=== PATIENT | female | born 1945 | race African-American/Black ===

== ENCOUNTER → 2016-10-13 | Outpatient (CLI) | payer MEDICARE, MEDICAID ==
[2013-11-26 10:35] VITALS: BP 128/78
[~2016-10-13] MED LIST: ALLO100T PO; AMLO2.5T PO; CELE100C PO; CRESTOR5 MG PO; FLUT100D IH; HYDR-2766 PO; PROAIR HFA8.5 GM IH; TRAM50TA PO; VALS40TA2 PO
--- NOTE | 2016-10-13 14:58 | RAD ---
DATE: 10/13/2016 EXAM: DIGITAL SCREEN BILAT W/CAD HISTORY: Screening study. COMPARISON: 09/16/2015 This study was interpreted with the benefit of Computerized Aided Detection (CAD). The breast parenchyma shows scattered fibroglandular densities. Breast parenchyma level B. FINDINGS: Digital MLO and CC mammograms of both breasts were obtained. Comparison study is dated 06/29/2015. The breast parenchyma is composed of scattered fibroglandular densities which can obscure a lesion on mammography (breast density code B). Benign-appearing calcifications are seen within both breasts. No spiculated mass is seen. No malignant appearing calcification or area of architectural distortion is noted. Since the previous examination there has been no significant interval change. IMPRESSION: BI-RADS category 1, negative. There is no mammographic of evidence malignancy. Routine yearly screening mammography is recommended for follow-up. BI-RADS CATEGORY: 1 NEGATIVE RECOMMENDED FOLLOW-UP: 12M 12 MONTH FOLLOW-UP PQRS compliance statement: Patient information was entered into a reminder system with a target due date 10/10/2017 for the next mammogram. Mammography is a sensitive method for finding small breast cancers, but it does not detect them all and is not a substitute for careful clinical examination. A negative mammogram does not negate a clinically suspicious finding and should not result in delay in biopsying a clinically suspicious abnormality. "Our facility is accredited by the [employer] Mammography Program."
== END | disposition home or self-care (01) ==
LOC: MAMMO 13:32
PROVIDERS: ATTEND Family Medicine
DX: Z12.31 Encounter for screening mammogram for malignant neoplasm of breast (principal)
CPT/HCPCS: G0202; 77067

== ENCOUNTER 2017-01-26 09:00 | Emergency (ER) | payer MEDICARE, MEDICAID ==
[~2017-01-26] VITALS: Ht 160 cm; Wt 65.3 kg
[2017-01-26 09:08] VITALS: BP 111/66
[2017-01-26] MEDS ORDERED: MUPIROCIN 2 % TOPICAL CREAM 15GM TUBE. TP STA (09:19)
[2017-01-26] MEDS ORDERED: CEPH-264 PO (09:27)
[2017-01-26] MEDS ORDERED: TRAM50TA PO (09:27)
[2017-01-26] MEDS ORDERED: MUPI22OI2 TP (09:27)
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
== END 2017-01-26 09:38 | disposition home or self-care (01) ==
LOC: ER 09:00
DX: T24.201A Burn of second degree of unspecified site of right lower limb, except ankle and foot, initial encounter (principal); T31.0 Burns involving less than 10% of body surface; X12.XXXA Contact with other hot fluids, initial encounter; Y93.89 Activity, other specified; Y99.8 Other external cause status; Y92.89 Other specified places as the place of occurrence of the external cause
CPT/HCPCS: 16020; 99284-25

== ENCOUNTER → 2017-10-15 | Outpatient (CLI) | payer MEDICARE, MEDICAID ==
[~2017-10-15] MED LIST changes: +CEPH-264 PO; +MUPI22OI2 TP
--- NOTE | 2017-10-16 09:16 | RAD ---
History: Routine screening. Technique: Bilateral digital mammographic routine views were obtained with CAD - computer aided detection. Comparison: 10/13/2016 09/16/2015 08/22/2014 08/22/2013 08/08/2012 Findings: Breast Tissue Density B :The breast tissue is composed of mixed fatty and fibroglandular tissue. There are no suspicious masses, microcalcifications or areas of architectural distortion. Benign type calcifications are seen bilaterally. Impression: Negative mammogram. BI-RADS Category 2: Benign. Recommendation: In the absence of new clinical symptoms or change in physical exam, annual screening mammography is recommended. A mammogram does not have 100% sensitivity and therefore a negative imaging study should not delay further work up of a suspicious abnormality. The patient will receive a letter with the results in the mail. Patient information is entered into the reminder system with a target due date for the next screening mammogram. The patient will receive a reminder. "Our facility is accredited by the [employer] Mammography Program."
== END | disposition home or self-care (01) ==
LOC: MAMMO 10:16
PROVIDERS: ATTEND Family Medicine
DX: Z12.31 Encounter for screening mammogram for malignant neoplasm of breast (principal); I10 Essential (primary) hypertension; E78.5 Hyperlipidemia, unspecified
CPT/HCPCS: 77067

== ENCOUNTER → 2017-12-28 | Outpatient (CLI) | payer MEDICARE, MEDICAID ==
[~2017-12-28] MED LIST changes: -AMLO2.5T PO; +AMLO2.5T3 PO
[2017-12-28 15:17] LABS: ALBUMIN 4.4 g/dL (3.4-5.0); ALBUMIN/GLOBULIN RATIO 1.1 (1.0-1.7); CALCIUM 10.5 mg/dL (8.5-10.1); GFR 66.3; POTASSIUM 3.8 mmol/L (3.5-5.1); TOTAL BILIRUBIN 0.6 mg/dL (0.2-1.0); TOTAL PROTEIN 8.5 g/dL (6.4-8.2)
[2017-12-28 15:20] LABS: CHOLESTEROL/HDL RATIO 2.3
[2017-12-29 00:11] LABS: HEMOGLOBIN A1C 5.6 % (4.8-5.6)
== END | disposition home or self-care (01) ==
LOC: LAB 14:18
PROVIDERS: ATTEND Internal Medicine Cardiovascular Disease
DX: E11.9 Type 2 diabetes mellitus without complications (principal); E78.2 Mixed hyperlipidemia; I10 Essential (primary) hypertension
CPT/HCPCS: 36415; 80053; 80061; 83036; 84550

== ENCOUNTER 2018-02-25 15:12 | Emergency (ER) | payer MEDICARE, MEDICAID ==
[~2018-02-25] VITALS: Ht 160 cm; Wt 62.6 kg
[~2018-02-25 15:12] MED LIST changes: +ALBU2.5V8 IH; -AMLO2.5T3 PO; +AMLO2.5T5 PO; -HYDR-2766 PO; +HYDR-2769 PO; -PROAIR HFA8.5 GM IH
[2018-02-25 15:22] VITALS: BP 124/80
--- NOTE | 2018-02-25 15:30 | PHYS DOC ---
Past Medical History Past Medical History: CVA, GERD, Hypertension, Other Additional Past Medical Histor: CHRONIC PAIN,OA,GOUT,ANEURSYM Past Surgical History: Other Additional Past Surgical Histo: R LEG,R SHOULDER,EYE Alcohol Use: Occasionally Drug Use: None Adult General Chief Complaint Chief Complaint: FOOT INJURY PAIN HPI HPI Patient is a 72 year old female with history of hypertension, CVA, high cholesterol, gout, who presents today complaining of a constant sharp 10 out of 10 left lateral foot pain that began 5 days ago after she fell. Patient denies any loss of consciousness. She states her pain is worse on weight bearing. She states the Fernando bandages have been helping manage the pain. Review of Systems Review of Systems Constitutional: Denies fever or chills [] Musculoskeletal: Reports left lateral foot pain Integument: Denies rash or skin lesions [] Neurologic: Denies headache, focal weakness or sensory changes [] All other systems were reviewed and found to be within normal limits, except as documented in this note. Current Medications Current Medications Current Medications Medications (Trade) Dose Ordered Sig/Cherelle Start Time Stop Time Status Last Admin Dose Admin Acetaminophen/ Hydrocodone Bitart (Lortab 5/325) 1 tab 1X ONCE 02/25/18 16:00 02/25/18 16:01 UNV Naproxen (Naprosyn) 250 mg 1X STAT 02/25/18 15:53 02/25/18 15:54 UNV Prednisone (Prednisone) 60 mg 1X ONCE 02/25/18 16:00 02/25/18 16:01 UNV Allergies Allergies Allergies Coded Allergies Type Severity Reaction Last Updated Verified No Known Drug Allergies 11/26/13 No Physical Exam Physical Exam Constitutional: Well developed, well nourished, no acute distress, non-toxic appearance. [] Skin: Warm, dry, no erythema, no rash. [] Back: No tenderness, no CVA tenderness. [] Extremities: Left foot with no obvious deformity. Tenderness on palpation of the base of the fifth metatarsal of the left foot, no navicular bone tenderness. Full range of motion to the left foot and toes. +2 left pedal pulse. Cap refill less than 2 seconds. Sensation intact to the left foot. Neurologic: Alert and oriented X 3, normal motor function, normal sensory function, no focal deficits noted. [] Psychologic: Affect normal, judgement normal, mood normal. [] Current Patient Data Vital Signs Vital Signs Date Time Temp Pulse Resp B/P (MAP) Pulse Ox O2 Delivery O2 Flow Rate FiO2 02/25/18 15:22 98.7 86 18 124/80 (95) 98 Room Air 98.7 EKG EKG [] Radiology/Procedures Radiology/Procedures []PROCEDURE: FOOT LEFT 3V Examination: FOOT LEFT 3V History: pain on planter side and lateral side of mid foot. Comparison/Correlation: None Findings: Total 3 images of the left foot were obtained. Joint spaces are unremarkable. Small calcaneal spur present. No fracture or bony destruction. Soft tissues are grossly unremarkable. Accessory ossicle lateral to the cuboid bone noted. No significant degenerative change. Impression: No acute process. Electronically signed by: Abran Kim MD (02/25/2018 3:39 PM) [facility] DICTATED and SIGNED BY: ROC HAQUE MD DATE: 02/25/18 1538 Course & Med Decision Making Course & Med Decision Making Pertinent Labs and Imaging studies reviewed. (See chart for details) This is a 72-year-old female patient presenting to the ED today with left foot pain, she fell down 5 days ago. Left foot x-rays interpreted by radiologist are negative for any acute findings. Patient already has an Fernando bandage on her left foot. Orthopedic shoe provided. Ice/ elevation encouraged. Discharged with diclofenac cream, Medrol Dosepak and instructed to follow-up with orthopedic doctor in one week. Provided return precautions and discharged in stable condition. Dragon Disclaimer Dragon Disclaimer This electronic medical record was generated, in whole or in part, using a voice recognition dictation system. Departure Departure Impression: Primary Impression: Sprain of left foot Additional Impression: Fall from standing Disposition: 01 HOME, SELF-CARE Condition: STABLE Referrals: ELIZABETH CONCEPCION MD (PCP) SILVIA LARSON MD follow up in one week Patient Instructions: Fall Prevention and Home Safety, Foot Sprain-Brief Additional Instructions: You were evaluated in the Emergency room for left foot pain, your left foot x- rays are negative for any acute findings. Try to ice and elevate the extremity. Continue using the Fernando bandage and orthopedic shoe provided as needed and tolerated. Follow-up with your own primary care doctor or the provided specialist in the next 7 days. Scripts Methylprednisolone (MEDROL) 4 Mg Tab.ds.pk 1 PKG PO UD, #1 PKG Prov: ANNA RICHARDSON ICE CREAM CHEF 02/25/18 Diclofenac Sodium (VOLTAREN) 100 Gm Gel..gram. 1 GM TP QID, #100 GM 2 Refills Prov: ANNA RICHARDSON ICE CREAM CHEF 02/25/18 Problem Qualifiers Primary Impression: Sprain of left foot Encounter type: initial encounter Qualified Codes: S93.602A - Unspecified sprain of left foot, initial encounter Additional Impression: Fall from standing Encounter type: initial encounter Qualified Codes: W19.XXXA - Unspecified fall, initial encounter ANNA RICHARDSON ICE CREAM CHEF Feb 25, 2018 15:30
--- NOTE | 2018-02-25 15:43 | RAD ---
Examination: FOOT LEFT 3V History: pain on planter side and lateral side of mid foot. Comparison/Correlation: None Findings: Total 3 images of the left foot were obtained. Joint spaces are unremarkable. Small calcaneal spur present. No fracture or bony destruction. Soft tissues are grossly unremarkable. Accessory ossicle lateral to the cuboid bone noted. No significant degenerative change. Impression: No acute process. Electronically signed by: Abran Kim MD (02/25/2018 3:39 PM) [facility]
[2018-02-25] MEDS ORDERED: NAPROXEN 250 MG TABLET PO STA (15:53)
[2018-02-25] MEDS ORDERED: METH4TAB2 PO (16:00)
[2018-02-25] MEDS ORDERED: DICL100G18 TP (16:00)
[2018-02-25] MEDS ORDERED: predniSONE 20 MG TABLET PO ONE (16:00)
[2018-02-25] MEDS ORDERED: HYDROcodone/APAP 5/325MG 1 TAB TABLET PO ONE (16:00)
[2018-07-05] MEDS ORDERED: TIZA4TAB2 PO (15:58)
== END 2018-02-25 16:20 | disposition home or self-care (01) ==
LOC: ER 15:12
DX: S93.601A Unspecified sprain of right foot, initial encounter (principal); M77.32 Calcaneal spur, left foot; I10 Essential (primary) hypertension; M10.9 Gout, unspecified; M19.90 Unspecified osteoarthritis, unspecified site; E78.00 Pure hypercholesterolemia, unspecified; Z86.73 Personal history of transient ischemic attack (TIA), and cerebral infarction without residual deficits; K21.9 Gastro-esophageal reflux disease without esophagitis; G89.29 Other chronic pain; W18.39XA Other fall on same level, initial encounter; Y93.89 Activity, other specified; Y92.89 Other specified places as the place of occurrence of the external cause; Y99.8 Other external cause status
CPT/HCPCS: 73630; 99284; J7512

== ENCOUNTER 2018-07-05 11:19 | Inpatient (IN) | payer MEDICARE, MEDICAID ==
[~2018-07-05] VITALS: Ht 160 cm; Wt 65.5 kg
[~2018-07-05 11:19] MED LIST changes: +DICL100G18 TP; +METH4TAB2 PO
[2018-07-05 11:47] LABS: BASO % 1 % (0-3); EOS % 1 % (0-3); HEMATOCRIT 43.4 % (36.0-47.0); HEMOGLOBIN 14.6 g/dL (12.0-15.5); LYMPH # 1.2 x10^3/uL (1.0-4.8); LYMPH % 26 % (24-48); MEAN CORPUSCULAR HEMOGLOBIN 32 pg (25-35); MEAN CORPUSCULAR HGB CONC 34 g/dL (31-37); MEAN CORPUSCULAR VOLUME 94 fL (79-100); MONO # 0.2 x10^3/uL (0.0-1.1); MONO % 6 % (0-9); NEUT % 67 % (31-73); PLATELET COUNT 235 x10^3/uL (140-400); RED BLOOD COUNT 4.63 x10^6/uL (3.50-5.40); RED CELL DISTRIBUTION WIDTH 13.8 % (11.5-14.5); WHITE BLOOD COUNT 4.5 x10^3/uL (4.0-11.0)
[2018-07-05 11:58] LABS: CALCIUM 10.1 mg/dL (8.5-10.1); CREATININE 1.1 mg/dL (0.6-1.0); GFR 59.4; POTASSIUM 3.9 mmol/L (3.5-5.1)
--- NOTE | 2018-07-05 12:01 | PHYS DOC ---
Past Medical History Past Medical History: Asthma, Hypertension, Stroke Additional Past Medical Histor: Osteoarthritis, spinal stenosis Past Surgical History: Other Additional Past Surgical Histo: R hand surgery, R knee surgery Alcohol Use: Occasionally Drug Use: None Adult General Chief Complaint Chief Complaint: CHEST PAIN [facility] HPI Patient is a 72-year-old female who presents with complaint of left-sided chest pain that started about a week ago. Patient states that pain is like a tightness and states that it's a 5 out of 10. She states the pain has been fairly constant since onset week ago. She denies any recent injuries. Patient does admit to a mild cough but states that it is not been productive. She states the pain is also in her back but denies any radiation to her shoulder neck or jaw. Patient denies any nausea, vomiting or diaphoresis. She states that nothing worsens her symptoms or improves her symptoms. Patient states that she was seen by her doctor right after it started and states that she had an abnormal EKG at that time. Review of Systems Review of Systems Constitutional: Denies fever or chills [] Respiratory: Denies cough or shortness of breath [] Cardiovascular: No additional information not addressed in HPI [] GI: Denies abdominal pain, nausea, vomiting or diarrhea [] Musculoskeletal: Positive left sided mid to upper back pain [] Integument: Denies rash or skin lesions [] All other systems were reviewed and found to be within normal limits, except as documented in this note. Current Medications Current Medications Current Medications Medications (Trade) Dose Ordered Sig/Cherelle Start Time Stop Time Status Last Admin Dose Admin Ondansetron HCl (Zofran) 4 mg 1X ONCE 07/05/18 14:15 07/05/18 14:16 DC Sodium Chloride 1,000 ml @ 100 mls/hr Q10H 07/05/18 14:16 07/06/18 14:15 07/05/18 16:33 100 MLS/HR Allergies Allergies Allergies Coded Allergies Type Severity Reaction Last Updated Verified No Known Drug Allergies 11/26/13 No Physical Exam Physical Exam Constitutional: Well developed, well nourished, no acute distress, non-toxic appearance. [] HENT: Normocephalic, atraumatic, bilateral external ears normal, oropharynx moist, no oral exudates, nose normal. [] Eyes: PERRLA, EOMI, conjunctiva normal, no discharge. [] Neck: Normal range of motion, no tenderness, supple, no stridor. [] Cardiovascular:Heart rate regular rhythm, no murmur [] Lungs & Thorax: Bilateral breath sounds clear to auscultation [] Abdomen: Bowel sounds normal, soft, no tenderness. [] Skin: Warm, dry, no erythema, no rash. [] Extremities: No tenderness, no cyanosis, no clubbing, ROM intact, no edema. [] Neurologic: Alert and oriented X 3, no focal deficits noted. [] Current Patient Data Vital Signs Vital Signs Date Time Temp Pulse Resp B/P (MAP) Pulse Ox O2 Delivery O2 Flow Rate FiO2 07/05/18 14:10 80 16 136/93 (107) 100 Room Air 07/05/18 11:23 97.8 97.8 Lab Values Laboratory Tests Test 07/05/18 11:35 07/05/18 12:05 White Blood Count 4.5 x10^3/uL (4.0-11.0) Red Blood Count 4.63 x10^6/uL (3.50-5.40) Hemoglobin 14.6 g/dL (12.0-15.5) Hematocrit 43.4 % (36.0-47.0) Mean Corpuscular Volume 94 fL (79-100) Mean Corpuscular Hemoglobin 32 pg (25-35) Mean Corpuscular Hemoglobin Concent 34 g/dL (31-37) Red Cell Distribution Width 13.8 % (11.5-14.5) Platelet Count 235 x10^3/uL (140-400) Neutrophils (%) (Auto) 67 % (31-73) Lymphocytes (%) (Auto) 26 % (24-48) Monocytes (%) (Auto) 6 % (0-9) Eosinophils (%) (Auto) 1 % (0-3) Basophils (%) (Auto) 1 % (0-3) Neutrophils # (Auto) 3.0 x10^3uL (1.8-7.7) Lymphocytes # (Auto) 1.2 x10^3/uL (1.0-4.8) Monocytes # (Auto) 0.2 x10^3/uL (0.0-1.1) Eosinophils # (Auto) 0.0 x10^3/uL (0.0-0.7) Basophils # (Auto) 0.0 x10^3/uL (0.0-0.2) Sodium Level 138 mmol/L (136-145) Potassium Level 3.9 mmol/L (3.5-5.1) Chloride Level 99 mmol/L (98-107) Carbon Dioxide Level 24 mmol/L (21-32) Anion Gap 15 (6-14) H Blood Urea Nitrogen 17 mg/dL (7-20) Creatinine 1.1 mg/dL (0.6-1.0) H Estimated GFR (Cockcroft-Gault) 59.4 BUN/Creatinine Ratio 15 (6-20) Glucose Level 97 mg/dL (70-99) Calcium Level 10.1 mg/dL (8.5-10.1) Magnesium Level 1.6 mg/dL (1.8-2.4) L Total Bilirubin 0.8 mg/dL (0.2-1.0) Aspartate Amino Transferase (AST) 12 U/L (15-37) L Alanine Aminotransferase (ALT) 16 U/L (14-59) Alkaline Phosphatase 80 U/L (46-116) Troponin I Quantitative < 0.017 ng/mL (0.000-0.055) RZ-Joj-L-Type Natriuretic Peptide 29 pg/mL (0-124) Total Protein 7.7 g/dL (6.4-8.2) Albumin 4.4 g/dL (3.4-5.0) Albumin/Globulin Ratio 1.3 (1.0-1.7) Triglycerides Level 97 mg/dL (0-150) Cholesterol Level 255 mg/dL (0-200) H LDL Cholesterol, Calculated 163 mg/dL (0-100) H VLDL Cholesterol, Calculated 19 mg/dL (0-40) Non-HDL Cholesterol Calculated 182 mg/dL (0-129) H HDL Cholesterol 73 mg/dL (40-60) H Cholesterol/HDL Ratio 3.5 Urine Color Yellow Urine Clarity Cloudy Urine pH 5.5 Urine Specific [place] 1.025 Urine Protein Negative mg/dL (NEG-TRACE) Urine Glucose (UA) 100 mg/dL (NEG) Urine Ketones (Stick) 40 mg/dL (NEG) Urine Blood Negative (NEG) Urine Nitrite Negative (NEG) Urine Bilirubin Small (NEG) Urine Urobilinogen Dipstick 1.0 mg/dL (0.2 mg/dL) Urine Leukocyte Esterase Moderate (NEG) Urine RBC 0 /HPF (0-2) Urine WBC 5-10 /HPF (0-4) Urine Squamous Epithelial Cells Many /LPF Urine Bacteria Many /HPF (0-FEW) Urine Mucus Marked /LPF Laboratory Tests 07/05/18 11:35 Laboratory Tests 07/05/18 11:35 EKG EKG [] Interpretation Time: EKG demonstrates normal sinus rhythm with rate of 78. Radiology/Procedures Radiology/Procedures [] Course & Med Decision Making Course & Med Decision Making Pertinent Labs and Imaging studies reviewed. (See chart for details) [] Dragon Disclaimer Dragon Disclaimer This electronic medical record was generated, in whole or in part, using a voice recognition dictation system. Departure Departure Impression: Primary Impression: Chest pain Disposition: ADMITTED INPATIENT Admitting Physician: Antoine Aguiar Condition: IMPROVED Referrals: ELIZABETH CONCEPCION MD (PCP) Problem Qualifiers Primary Impression: Chest pain Chest pain type: unspecified Qualified Codes: R07.9 - Chest pain, unspecified MARRY HUFFMAN Jr. DO July 05, 2018 12:01
[2018-07-05 12:04] LABS: ALBUMIN 4.4 g/dL (3.4-5.0); ALBUMIN/GLOBULIN RATIO 1.3 (1.0-1.7); MAGNESIUM 1.6 mg/dL (1.8-2.4); TOTAL BILIRUBIN 0.8 mg/dL (0.2-1.0); TOTAL PROTEIN 7.7 g/dL (6.4-8.2)
[2018-07-05 12:17] LABS: BILIRUBIN,URINE SMALL (NEG); CLARITY,URINE CLOUDY; COLOR,URINE YELLOW; NITRITE,URINE NEGATIVE (NEG); PH,URINE 5.5; PROTEIN,URINE NEGATIVE (NEG-TRACE)
[2018-07-05 12:30] LABS: SQUAMOUS EPITHELIAL CELL,UR MANY /LPF
[2018-07-05 12:31] LABS: BACTERIA,URINE MANY /HPF (0-FEW); RBC,URINE 0 /HPF (0-2)
--- NOTE | 2018-07-05 12:43 | RAD ---
EXAM: CHEST 1 VIEW History: Chest pain COMPARISON: None available. TECHNIQUE: Single portable radiograph of the chest FINDINGS: The cardiac silhouette is unremarkable. The lungs are clear bilaterally. The costophrenic sulci are clear and well demarcated. IMPRESSION: No radiographic evidence of an acute cardiopulmonary process. Electronically signed by: Yossi Phan MD (07/05/2018 12:41 PM) [facility]
[2018-07-05] MEDS ORDERED: ONDANSETRON PF 4 MG/2 ML VIAL. IV ONE (14:15)
[2018-07-05] MEDS ORDERED: MORPHINE SULFATE 2 MG/ML VIAL. IV PRN (14:30)
[2018-07-05] MEDS ORDERED: NITROGLYCERIN SUBLINGUAL 0.4 MG BOTTLE OF 25. SL PRN (14:30)
[2018-07-05] MEDS ORDERED: ONDANSETRON PF 4 MG/2 ML VIAL. IV PRN (14:30)
--- NOTE | 2018-07-05 14:55 | EKG ---
[facility] [address] [place] [address] Test Date: 2018-07-05 Test Time: 11:23:49 Pat Name: LYNDA FORREST Department: Room: 200 1 Gender: F Digital Marketing Associate: : [id number] Requested By: CAYLA SWENSON Order Number: [id number] Reading MD: Albin Morejon MD Measurements Intervals [place] Rate: 78 P: 20 NV: 170 QRS: 33 QRSD: 82 T: 31 QT: 332 QTc: 381 Interpretive Statements SINUS RHYTHM NON-SPECIFIC ST/T CHANGES Electronically Signed On 07-09-2018 13:55:54 CDT by Albin Morejon MD
--- NOTE | 2018-07-05 15:20 | PDOC1 ---
History and Physical Date of Admission Date of Admission DATE: 07/05/18 TIME: 15:20 Identification/Chief Complaint Chief Complaint SEEN IN ER , 72-year-old female who presents with complaint of left-sided chest pain that started about a week ago. states that pain is like a tightness and states that it's a 5 out of 10. She states the pain has been fairly constant since onset week ago. Patient does admit to a mild cough but states that it is not been productive. She states the pain is also in her back but denies any radiation to her shoulder neck or jaw. Patient denies any nausea, vomiting or diaphoresis. She states that nothing worsens her symptoms or improves her symptoms. Patient states that she was seen by her doctor right after it started and states that she had an abnormal EKG Past Medical History Past Medical History Past Medical History Past Medical History Past Medical History: Asthma, Hypertension, Stroke Additional Past Medical Histor: Osteoarthritis, spinal stenosis Past Surgical History: Other Additional Past Surgical Histo: R hand surgery, R knee surgery Alcohol Use: Occasionally Drug Use: None FHX FATHER HAD A ME Cardiovascular: HTN, Hyperlipidemia CENTRAL NERVOUS SYSTEM: CVA, Other GI: No pertinent hx Heme/Onc: No pertinent hx Hepatobiliary: No pertinent hx Psych: Anxiety, Depression Rheumatologic: Fibromyalgia Infectious disease: No pertinent hx Renal/: No pertinent hx Endocrine: No pertinent hx Past Surgical History Past Surgical History: Other Family History Family History: Coronary Artery Disease Social History Smoke: No ALCOHOL: none Drugs: None Current Medications Current Medications Current Medications Ondansetron HCl (Zofran) 4 mg 1X ONCE IV ; Start 07/05/18 at 14:15; Stop 07/05/18 at 14:16; Status DC Ondansetron HCl (Zofran) 4 mg PRN Q8HRS PRN IV NAUSEA/VOMITING; Start 07/05/18 at 14:30; Stop 07/06/18 at 14:29 Morphine Sulfate (Morphine Sulfate) 2 mg PRN Q2HR PRN IV PAIN; Start 07/05/18 at 14:30; Stop 07/06/18 at 14:29 Sodium Chloride 1,000 ml @ 100 mls/hr Q10H IV ; Start 07/05/18 at 14:16; Stop 07/06/18 at 14:15 Nitroglycerin (Nitrostat) 0.4 mg PRN Q5MIN PRN SL CHEST PAIN; Start 07/05/18 at 14:30; Stop 07/06/18 at 14:29 Active Scripts Active Medrol (Methylprednisolone) 4 Mg Tab.ds.pk 1 Pkg PO UD Voltaren (Diclofenac Sodium) 100 Gm Gel..gram. 1 Gm TP QID Tramadol Hcl 50 Mg Tablet 1 Tab PO Q6HRS PRN Mupirocin Ointment (Mupirocin) 22 Gm Oint...g. 1 Precious TP BID Keflex (Cephalexin) 500 Mg Capsule 1 Cap PO BID Reported Proair Hfa Inhaler (Albuterol Sulfate) 8.5 Gm Hfa.aer.ad 2 Puff IH PRN Q4-6HRS Flovent 100MCG Diskus (Fluticasone Propionate) 100 Mcg Disk.w.dev 1 Puff IH BID Hydrocodone-Apap 10-325 (Hydrocodone Bit/Acetaminophen) 1 Each Tablet 1 Tab PO PRN Q6HRS PRN Diovan (Valsartan) 40 Mg Tablet 1 Tab PO DAILY Tramadol Hcl 50 Mg Tablet 1 Tab PO BID Celebrex (Celecoxib) 100 Mg Capsule 1 Cap PO BID Allopurinol 100 Mg Tablet 1 Tab PO DAILY Crestor (Rosuvastatin Calcium) 5 Mg Tablet 1 Tab PO DAILY Amlodipine Besylate 2.5 Mg Tablet 1 Tab PO DAILY Allergies Allergies: Coded Allergies: No Known Drug Allergies (Unverified , 11/26/13) ROS Review of System Review of Systems Review of Systems Constitutional: Denies fever or chills [] Respiratory: Denies cough or shortness of breath [] Cardiovascular: No additional information not addressed in HPI [] GI: Denies abdominal pain, nausea, vomiting or diarrhea [] Musculoskeletal: Positive left sided mid to upper back pain [] Integument: Denies rash or skin lesions [] 14 PT systems were reviewed and found to be within normal limits, except as documented PSYCHOLOGICAL ROS: No: Anxiety, Behavioral Disorder, Concentration difficultie, Decreased libido, Depression, Disorientation, Hallucinations, Hostility, Irritablity, Memory difficulties, Mood Swings, Obsessive thoughts, Physical abuse, Sexual abuse, Sleep disturbances, Suicidal ideation, Other HEENT: No: Heacaches, Visual Changes, Hearing change, Nasal congestion, Nasal discharge, Oral lesions, Sinus pain, Sore Throat, Epistaxis, Sneezing, Snoring, Tinnitus, Vertigo, Vocal changes, Other ALLERGY AND IMMUNOLOGY: No: Hives, Insect Bite Sensitivity, Itchy/Watery Eyes, Nasal Congestion, Post Nasal Drip, Seasonal Allergies, Other Hematological and Lymphatic: No: Bleeding Problems, Blood Clots, Blood Transfusions, Brusing, Night Sweats, Pallor, Swollen Lymph Nodes, Other Respiratory: YES: Cough Cardiovascular: yes Chest Pain Gastrointestinal: No Nausea, No Vomiting, No Abdominal Pain, No Diarrhea, No Constipation, No Melena, No Hematochezia, No Other Musculoskeletal: Yes Joint Stiffness; No Gait Disturbance, No Joint Pain, No Joint Swelling, No Muscle Pain, No Muscular Weakness, No Pain In:, No Swelling In:, No Other Neurological: Yes Gait Disturbance; No Behavorial Changes, No Bowel/Bladder ControlChng, No Confusion, No Dizziness, No Headaches, No Impaired Coord/balance, No Memory Loss, No Numbness/Tingling, No Seizures, No Speech Problems, No Tremors, No Visual Changes, No Weakness, No Other Skin: Yes Dry Skin Physical Exam Physical Exam Physical Exam Physical Exam Constitutional: Well developed, well nourished, no acute distress, non-toxic appearance. [] HENT: Normocephalic, atraumatic, bilateral external ears normal, oropharynx moist, no oral exudates, nose normal. [] Eyes: PERRLA, EOMI, conjunctiva normal, no discharge. [] Neck: Normal range of motion, no tenderness, supple, no stridor. [] Cardiovascular:Heart rate regular rhythm, no murmur [] Lungs & Thorax: Bilateral breath sounds clear to auscultation [] Abdomen: Bowel sounds normal, soft, no tenderness. [] Skin: Warm, dry, no erythema, no rash. [] Extremities: No tenderness, no cyanosis, no clubbing, ROM intact, no edema. [] Neurologic: Alert and oriented X 3, no focal deficits noted. [] General: Alert, Cooperative, No acute distress HEENT: EOMI, Mucous membr. moist/pink Lungs: Clear to auscultation, Normal air movement Heart: S1S2, RRR, no thrills, no gallops, no murmurs Breasts: Not examined Abdomen: Normal bowel sounds, Soft Extremities: No cyanosis Neuro: Normal speech, Cranial nerves 3-12 NL Psych/Mental Status: Mental status NL, Mood NL Vitals Vitals Vital Signs Date Time Temp Pulse Resp B/P (MAP) Pulse Ox O2 Delivery O2 Flow Rate FiO2 07/05/18 14:40 90 17 140/99 (113) 99 Room Air 07/05/18 11:23 97.8 97.8 Labs Labs Laboratory Tests Test 07/05/18 11:35 07/05/18 12:05 White Blood Count 4.5 x10^3/uL (4.0-11.0) Red Blood Count 4.63 x10^6/uL (3.50-5.40) Hemoglobin 14.6 g/dL (12.0-15.5) Hematocrit 43.4 % (36.0-47.0) Mean Corpuscular Volume 94 fL (79-100) Mean Corpuscular Hemoglobin 32 pg (25-35) Mean Corpuscular Hemoglobin Concent 34 g/dL (31-37) Red Cell Distribution Width 13.8 % (11.5-14.5) Platelet Count 235 x10^3/uL (140-400) Neutrophils (%) (Auto) 67 % (31-73) Lymphocytes (%) (Auto) 26 % (24-48) Monocytes (%) (Auto) 6 % (0-9) Eosinophils (%) (Auto) 1 % (0-3) Basophils (%) (Auto) 1 % (0-3) Neutrophils # (Auto) 3.0 x10^3uL (1.8-7.7) Lymphocytes # (Auto) 1.2 x10^3/uL (1.0-4.8) Monocytes # (Auto) 0.2 x10^3/uL (0.0-1.1) Eosinophils # (Auto) 0.0 x10^3/uL (0.0-0.7) Basophils # (Auto) 0.0 x10^3/uL (0.0-0.2) Sodium Level 138 mmol/L (136-145) Potassium Level 3.9 mmol/L (3.5-5.1) Chloride Level 99 mmol/L (98-107) Carbon Dioxide Level 24 mmol/L (21-32) Anion Gap 15 (6-14) Blood Urea Nitrogen 17 mg/dL (7-20) Creatinine 1.1 mg/dL (0.6-1.0) Estimated GFR (Cockcroft-Gault) 59.4 BUN/Creatinine Ratio 15 (6-20) Glucose Level 97 mg/dL (70-99) Calcium Level 10.1 mg/dL (8.5-10.1) Magnesium Level 1.6 mg/dL (1.8-2.4) Total Bilirubin 0.8 mg/dL (0.2-1.0) Aspartate Amino Transf (AST/SGOT) 12 U/L (15-37) Alanine Aminotransferase (ALT/SGPT) 16 U/L (14-59) Alkaline Phosphatase 80 U/L (46-116) Troponin I Quantitative < 0.017 ng/mL (0.000-0.055) HJ-Cki-Z-Type Natriuretic Peptide 29 pg/mL (0-124) Total Protein 7.7 g/dL (6.4-8.2) Albumin 4.4 g/dL (3.4-5.0) Albumin/Globulin Ratio 1.3 (1.0-1.7) Urine Color Yellow Urine Clarity Cloudy Urine pH 5.5 Urine Specific [place] 1.025 Urine Protein Negative mg/dL (NEG-TRACE) Urine Glucose (UA) 100 mg/dL (NEG) Urine Ketones (Stick) 40 mg/dL (NEG) Urine Blood Negative (NEG) Urine Nitrite Negative (NEG) Urine Bilirubin Small (NEG) Urine Urobilinogen Dipstick 1.0 mg/dL (0.2 mg/dL) Urine Leukocyte Esterase Moderate (NEG) Urine RBC 0 /HPF (0-2) Urine WBC 5-10 /HPF (0-4) Urine Squamous Epithelial Cells Many /LPF Urine Bacteria Many /HPF (0-FEW) Urine Mucus Marked /LPF Laboratory Tests Test 07/05/18 11:35 07/05/18 12:05 White Blood Count 4.5 x10^3/uL (4.0-11.0) Red Blood Count 4.63 x10^6/uL (3.50-5.40) Hemoglobin 14.6 g/dL (12.0-15.5) Hematocrit 43.4 % (36.0-47.0) Mean Corpuscular Volume 94 fL (79-100) Mean Corpuscular Hemoglobin 32 pg (25-35) Mean Corpuscular Hemoglobin Concent 34 g/dL (31-37) Red Cell Distribution Width 13.8 % (11.5-14.5) Platelet Count 235 x10^3/uL (140-400) Neutrophils (%) (Auto) 67 % (31-73) Lymphocytes (%) (Auto) 26 % (24-48) Monocytes (%) (Auto) 6 % (0-9) Eosinophils (%) (Auto) 1 % (0-3) Basophils (%) (Auto) 1 % (0-3) Neutrophils # (Auto) 3.0 x10^3uL (1.8-7.7) Lymphocytes # (Auto) 1.2 x10^3/uL (1.0-4.8) Monocytes # (Auto) 0.2 x10^3/uL (0.0-1.1) Eosinophils # (Auto) 0.0 x10^3/uL (0.0-0.7) Basophils # (Auto) 0.0 x10^3/uL (0.0-0.2) Sodium Level 138 mmol/L (136-145) Potassium Level 3.9 mmol/L (3.5-5.1) Chloride Level 99 mmol/L (98-107) Carbon Dioxide Level 24 mmol/L (21-32) Anion Gap 15 (6-14) Blood Urea Nitrogen 17 mg/dL (7-20) Creatinine 1.1 mg/dL (0.6-1.0) Estimated GFR (Cockcroft-Gault) 59.4 BUN/Creatinine Ratio 15 (6-20) Glucose Level 97 mg/dL (70-99) Calcium Level 10.1 mg/dL (8.5-10.1) Magnesium Level 1.6 mg/dL (1.8-2.4) Total Bilirubin 0.8 mg/dL (0.2-1.0) Aspartate Amino Transf (AST/SGOT) 12 U/L (15-37) Alanine Aminotransferase (ALT/SGPT) 16 U/L (14-59) Alkaline Phosphatase 80 U/L (46-116) Troponin I Quantitative < 0.017 ng/mL (0.000-0.055) KU-Lao-M-Type Natriuretic Peptide 29 pg/mL (0-124) Total Protein 7.7 g/dL (6.4-8.2) Albumin 4.4 g/dL (3.4-5.0) Albumin/Globulin Ratio 1.3 (1.0-1.7) Urine Color Yellow Urine Clarity Cloudy Urine pH 5.5 Urine Specific [place] 1.025 Urine Protein Negative mg/dL (NEG-TRACE) Urine Glucose (UA) 100 mg/dL (NEG) Urine Ketones (Stick) 40 mg/dL (NEG) Urine Blood Negative (NEG) Urine Nitrite Negative (NEG) Urine Bilirubin Small (NEG) Urine Urobilinogen Dipstick 1.0 mg/dL (0.2 mg/dL) Urine Leukocyte Esterase Moderate (NEG) Urine RBC 0 /HPF (0-2) Urine WBC 5-10 /HPF (0-4) Urine Squamous Epithelial Cells Many /LPF Urine Bacteria Many /HPF (0-FEW) Urine Mucus Marked /LPF Images Images EXAM: CHEST 1 VIEW History: Chest pain COMPARISON: None available. TECHNIQUE: Single portable radiograph of the chest FINDINGS: The cardiac silhouette is unremarkable. The lungs are clear bilaterally. The costophrenic sulci are clear and well demarcated. IMPRESSION: No radiographic evidence of an acute cardiopulmonary process. Electronically signed by: Yossi Phan MD (07/05/2018 12:41 PM) [facility] VTE Prophylaxis Ordered VTE Prophylaxis Devices: Yes VTE Pharmacological Prophylaxi: Yes Assessment/Plan Assessment/Plan IMPRESSION 1. CHEST PAIN 2. POS FHX ASHD 3. HTN 4. HYPERLIPIDEMIA PLAN ADMIT CVC BED SERIAL TROPONIN I CARDIOLOGY CONSULT ECHO DVT PROPHYLAXIS RENATA JONES MD July 05, 2018 15:20
[2018-07-05 15:26] VITALS: BP 131/91
[2018-07-05] MEDS ORDERED: ALBUTEROL SULFATE 2.5 MG/3 ML NEBU. INH PRN (15:30)
[2018-07-05] MEDS ORDERED: CIPR500T PO (15:58)
[2018-07-05] MEDS ORDERED: TIZA4TAB PO (15:58)
[2018-07-05] MEDS ORDERED: LANS30CA PO (15:58)
[2018-07-05] MEDS ORDERED: LOSA1TAB19 PO (15:58)
[2018-07-05] MEDS ORDERED: AMLO10TA8 PO (15:58)
--- NOTE | 2018-07-05 16:12 | PDOC2 ---
CARDIAC CONSULT DATE OF CONSULT Date of Consult DATE: 07/05/18 TIME: 16:08 REASON FOR CONSULT Reason for Consult: Chest pain REFERRING PHYSICIAN Referring Physician: Obi SOURCE Source: Chart review, Patient HISTORY OF PRESENT ILLNESS HISTORY OF PRESENT ILLNESS This is a pleasant 72 yo female admitted for complains of chest pain. reports that the other day she was having left back pain below her shoulder blade which was shapr and to her left chest but this was brief. Her main iussue so far is her upper abdomen feeling like she was bloated. with some mild nausea. No vomiting. She has not had BM for 4 days till today and this was hard and black as my hair as she described,. Denies any palpitations, no exertional CP or SOA. No changes to her activity tolerance. No recent falls, injury. She has not taken her BP meds fro about 3 days now since her abdomen has not been feeling well and her appetite has decreased and has been having insomnia as well. She admits she feel a little stressed but not depressed and this is due to her son that in 05/2018. No past hx of PUD, bleeding, VTE, CAD. she did have hemorrhagic stroke many yrs ago due to high BP. Her last colonoscopy was over 10 yrs ago and her last stress test was 2.5 yrs ago. No heartburn and she takes reflux med. PAST MEDICAL HISTORY Cardiovascular: HTN, Hyperlipidemia CENTRAL NERVOUS SYSTEM: CVA GI: GERD Heme/Onc: No pertinent hx Hepatobiliary: No pertinent hx Psych: No pertinent hx Musculoskeletal: Osteoarthritis Rheumatologic: No pertinent hx Infectious disease: No pertinent hx ENT: No pertinent hx Renal/: UTI (recently treated) Endocrine: No pertinent hx Dermatology: No pertinent hx PAST SURGICAL HISTORY Past Surgical History: Arthroscopy (right knee meniscus repair, right shoulder repair, right hand repair), Other (eye surgery; buttock cyst removal. ) FAMILY HISTORY Family History: Coronary Artery Disease (father at 53) SOCIAL HISTORY Smoke: Quit (remotely) ALCOHOL: occassional Drugs: Marijuana Lives: Alone ALLERGIES ALLERGIES: Coded Allergies: No Known Drug Allergies (Unverified , 11/26/13) ROS Review of System 14 point ROS evaluated with pertinent positives noted per HPI PHYSICAL EXAM General: Alert, Oriented X3, Cooperative, No acute distress HEENT: Atraumatic, Mucous membr. moist/pink Lungs: Clear to auscultation, Normal air movement Heart: Regular rate (SR), Normal S1, Normal S2, Other (2/6 systolic murmur to LLS border) Abdomen: Soft, No tenderness Extremities: No cyanosis, No edema Skin: No breakdown, No significant lesion Neuro: Normal speech, Sensation intact Psych/Mental Status: Mental status NL, Mood NL MUSCULOSKELETAL: Osteoarthritic changes both hands VITALS VITALS Vital Signs Date Time Temp Pulse Resp B/P (MAP) Pulse Ox O2 Delivery O2 Flow Rate FiO2 07/05/18 15:26 98.5 65 16 131/91 (104) 99 98.5 07/05/18 14:40 Room Air LABS Lab: Laboratory Tests Test 07/05/18 11:35 07/05/18 12:05 White Blood Count 4.5 x10^3/uL (4.0-11.0) Red Blood Count 4.63 x10^6/uL (3.50-5.40) Hemoglobin 14.6 g/dL (12.0-15.5) Hematocrit 43.4 % (36.0-47.0) Mean Corpuscular Volume 94 fL (79-100) Mean Corpuscular Hemoglobin 32 pg (25-35) Mean Corpuscular Hemoglobin Concent 34 g/dL (31-37) Red Cell Distribution Width 13.8 % (11.5-14.5) Platelet Count 235 x10^3/uL (140-400) Neutrophils (%) (Auto) 67 % (31-73) Lymphocytes (%) (Auto) 26 % (24-48) Monocytes (%) (Auto) 6 % (0-9) Eosinophils (%) (Auto) 1 % (0-3) Basophils (%) (Auto) 1 % (0-3) Neutrophils # (Auto) 3.0 x10^3uL (1.8-7.7) Lymphocytes # (Auto) 1.2 x10^3/uL (1.0-4.8) Monocytes # (Auto) 0.2 x10^3/uL (0.0-1.1) Eosinophils # (Auto) 0.0 x10^3/uL (0.0-0.7) Basophils # (Auto) 0.0 x10^3/uL (0.0-0.2) Sodium Level 138 mmol/L (136-145) Potassium Level 3.9 mmol/L (3.5-5.1) Chloride Level 99 mmol/L (98-107) Carbon Dioxide Level 24 mmol/L (21-32) Anion Gap 15 (6-14) Blood Urea Nitrogen 17 mg/dL (7-20) Creatinine 1.1 mg/dL (0.6-1.0) Estimated GFR (Cockcroft-Gault) 59.4 BUN/Creatinine Ratio 15 (6-20) Glucose Level 97 mg/dL (70-99) Calcium Level 10.1 mg/dL (8.5-10.1) Magnesium Level 1.6 mg/dL (1.8-2.4) Total Bilirubin 0.8 mg/dL (0.2-1.0) Aspartate Amino Transf (AST/SGOT) 12 U/L (15-37) Alanine Aminotransferase (ALT/SGPT) 16 U/L (14-59) Alkaline Phosphatase 80 U/L (46-116) Troponin I Quantitative < 0.017 ng/mL (0.000-0.055) EA-Ljg-V-Type Natriuretic Peptide 29 pg/mL (0-124) Total Protein 7.7 g/dL (6.4-8.2) Albumin 4.4 g/dL (3.4-5.0) Albumin/Globulin Ratio 1.3 (1.0-1.7) Urine Color Yellow Urine Clarity Cloudy Urine pH 5.5 Urine Specific [place] 1.025 Urine Protein Negative mg/dL (NEG-TRACE) Urine Glucose (UA) 100 mg/dL (NEG) Urine Ketones (Stick) 40 mg/dL (NEG) Urine Blood Negative (NEG) Urine Nitrite Negative (NEG) Urine Bilirubin Small (NEG) Urine Urobilinogen Dipstick 1.0 mg/dL (0.2 mg/dL) Urine Leukocyte Esterase Moderate (NEG) Urine RBC 0 /HPF (0-2) Urine WBC 5-10 /HPF (0-4) Urine Squamous Epithelial Cells Many /LPF Urine Bacteria Many /HPF (0-FEW) Urine Mucus Marked /LPF ASSESSMENT/PLAN ASSESSMENT/PLAN 1. Atypical CP: suspect GI 2. Constipation with possible GI bleed; "my stool is as black as your hair" hard stool today. Hgb stable and normal so far- defer to PCP 3. HTN: controlled 4. Family hx of premature CAD 5. Persistent UTI: defer to PCP recently finished anabiotics but just refilled it again Recommendations EKG SR without acute changes by comparison. Trend troponin, normal so far Restart home BP meds Check TTE, lipids. Restart home reflux meds. If test are negative then will consider outpt stress test given her significant cardiac risk factors. MORTEZA SANCHEZ APRN July 05, 2018 16:12
[2018-07-05] MEDS ORDERED: MAGNESIUM SULFATE 2GM 50 ML IV ONE (16:30)
[2018-07-05] MEDS: ALLOPURINOL 100 MG TABLET. PO SCH (16:32)
[2018-07-05] MEDS: IV NORMAL SALINE 1000ML BAG 1,000 ML IV SCH (16:33)
[2018-07-05] MEDS: PANTOPRAZOLE 40 MG TABLET.DR. PO SCH (16:33)
[2018-07-05] MEDS: LOSARTAN POTASSIUM 25 MG TABLET. PO SCH (16:33)
[2018-07-05] MEDS: amLODIPine BESYLATE 5 MG TABLET PO SCH (16:33)
[2018-07-05 16:59] LABS: CHOLESTEROL/HDL RATIO 3.5
[2018-07-05] MEDS: DICLOFENAC SODIUM 1% TOPICAL GEL 100GM TUBE. TP SCH ×2 (17:00→20:48)
[2018-07-05 19:00] VITALS: BP 118/80
[2018-07-05] MEDS: BUDESONIDE 0.5 MG/2 ML NEBU. NEB SCH (19:16)
--- NOTE | 2018-07-05 19:20 | NUR ---
Assessment completed vss poc explained pt c/o chase and pressure in sinus area will medicate and continue to monitor pt.
[2018-07-05] MEDS: HYDROcodone/APAP 10/325 1 TAB TABLET PO PRN (19:34)
[2018-07-05] MEDS: CELECOXIB 100 MG CAPSULE. PO SCH (20:48)
[2018-07-05] MEDS: ATORVASTATIN CALCIUM 20 MG TABLET PO SCH (20:48)
[2018-07-05] MEDS: ENOXAPARIN 40 MG/0.4 ML SYRINGE. SQ SCH (20:49)
[2018-07-05] MEDS ORDERED: MUPIROCIN 2 % NASAL OINTMENT 22GM TUBE. TP SCH (21:00)
[2018-07-05] MEDS ORDERED: NON FORMULARY ITEM (Fluticasone Propionate (Flovent 100MCG Diskus) 1 PUFF) IH SCH (21:00)
[2018-07-05 22:16] VITALS: BP 127/82
[2018-07-06 02:20] VITALS: BP 124/79
[2018-07-06] MEDS: IV NORMAL SALINE 1000ML BAG 1,000 ML IV SCH ×2 (03:29→08:13)
[2018-07-06 04:49] LABS: BASO % 0 % (0-3); EOS # 0.1 x10^3/uL (0.0-0.7); EOS % 2 % (0-3); HEMATOCRIT 38.5 % (36.0-47.0); HEMOGLOBIN 12.8 g/dL (12.0-15.5); LYMPH # 1.3 x10^3/uL (1.0-4.8); LYMPH % 40 % (24-48); MEAN CORPUSCULAR HEMOGLOBIN 32 pg (25-35); MEAN CORPUSCULAR HGB CONC 33 g/dL (31-37); MEAN CORPUSCULAR VOLUME 95 fL (79-100); MONO # 0.4 x10^3/uL (0.0-1.1); MONO % 11 % (0-9); NEUT # 1.6 x10^3uL (1.8-7.7); NEUT % 47 % (31-73); PLATELET COUNT 211 x10^3/uL (140-400); RED BLOOD COUNT 4.05 x10^6/uL (3.50-5.40); WHITE BLOOD COUNT 3.4 x10^3/uL (4.0-11.0)
[2018-07-06 05:27] LABS: CALCIUM 8.9 mg/dL (8.5-10.1); CREATININE 0.9 mg/dL (0.6-1.0); GFR 74.9; POTASSIUM 3.6 mmol/L (3.5-5.1)
[2018-07-06] MEDS: PANTOPRAZOLE 40 MG TABLET.DR. PO SCH (05:41)
[2018-07-06 07:00] VITALS: BP 124/79
[2018-07-06] MEDS: BUDESONIDE 0.5 MG/2 ML NEBU. NEB SCH ×2 (07:43→20:05)
[2018-07-06] MEDS: LOSARTAN POTASSIUM 25 MG TABLET. PO SCH (08:12)
[2018-07-06] MEDS: CELECOXIB 100 MG CAPSULE. PO SCH ×2 (08:12→20:37)
[2018-07-06] MEDS: HYDROcodone/APAP 10/325 1 TAB TABLET PO PRN ×2 (08:12→20:38)
[2018-07-06] MEDS: DICLOFENAC SODIUM 1% TOPICAL GEL 100GM TUBE. TP SCH ×4 (08:13→20:37)
[2018-07-06] MEDS: amLODIPine BESYLATE 5 MG TABLET PO SCH (08:13)
[2018-07-06] MEDS: ALLOPURINOL 100 MG TABLET. PO SCH (08:13)
[2018-07-06 11:00] VITALS: BP 122/84
--- NOTE | 2018-07-06 12:08 | PDOC ---
PROGRESS NOTES Chief Complaint Chief Complaint Atypical CP - suspect GI Constipation with possible GI bleed - "my stool is as black as your hair" hard stool today. Hgb stable and normal so far- defer to PCP HTN - controlled Family hx of premature CAD Persistent UTI Left sciatica History of Present Illness History of Present Illness This is a pleasant 72 yo female admitted for complains of chest pain. Reports that the other day she was having left back pain below her shoulder blade which was sharp and to her left chest but this was brief and feeling bloated with early satiety with some mild nausea. No vomiting. She had not had BM for 4 days till yesterday and this was hard and black. Denies any palpitations, no exertional CP or SOA. No changes to her activity tolerance. No recent falls, injury. She feel a little stressed but not depressed and this is due to her son that in 05/2018. No past hx of PUD, bleeding, VTE, CAD. 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 Her last colonoscopy was over 10 yrs ago and her last stress test was 2.5 yrs ago. Today on ROS notes intense left gluteal pain radiating down into her foot, consistent with prior sciatica. She is having epigastric and back pain while eating lunch right now. No SOB. Plan: Check occult stool PPI Medrol for sciatica, zanaflex Vitals Vitals Vital Signs Date Time Temp Pulse Resp B/P (MAP) Pulse Ox O2 Delivery O2 Flow Rate FiO2 07/06/18 11:00 98.4 69 16 122/84 (97) 97 Room Air 98.4 Physical Exam General: Alert, Oriented X3, Cooperative, No acute distress Heart: Regular rate (SR), Normal S1, Normal S2, Other (2/6 systolic murmur to LLS border) Abdomen: Soft, No tenderness Extremities: No cyanosis, No edema Skin: No breakdown, No significant lesion Labs LABS Laboratory Tests Test 07/05/18 12:05 07/05/18 17:39 07/05/18 20:05 07/06/18 04:00 Urine Color Yellow Urine Clarity Cloudy Urine pH 5.5 Urine Specific [place] 1.025 Urine Protein Negative mg/dL (NEG-TRACE) Urine Glucose (UA) 100 mg/dL (NEG) Urine Ketones (Stick) 40 mg/dL (NEG) Urine Blood Negative (NEG) Urine Nitrite Negative (NEG) Urine Bilirubin Small (NEG) Urine Urobilinogen Dipstick 1.0 mg/dL (0.2 mg/dL) Urine Leukocyte Esterase Moderate (NEG) Urine RBC 0 /HPF (0-2) Urine WBC 5-10 /HPF (0-4) Urine Squamous Epithelial Cells Many /LPF Urine Bacteria Many /HPF (0-FEW) Urine Mucus Marked /LPF Troponin I Quantitative < 0.017 ng/mL (0.000-0.055) < 0.017 ng/mL (0.000-0.055) White Blood Count 3.4 x10^3/uL (4.0-11.0) Red Blood Count 4.05 x10^6/uL (3.50-5.40) Hemoglobin 12.8 g/dL (12.0-15.5) Hematocrit 38.5 % (36.0-47.0) Mean Corpuscular Volume 95 fL (79-100) Mean Corpuscular Hemoglobin 32 pg (25-35) Mean Corpuscular Hemoglobin Concent 33 g/dL (31-37) Red Cell Distribution Width 14.0 % (11.5-14.5) Platelet Count 211 x10^3/uL (140-400) Neutrophils (%) (Auto) 47 % (31-73) Lymphocytes (%) (Auto) 40 % (24-48) Monocytes (%) (Auto) 11 % (0-9) Eosinophils (%) (Auto) 2 % (0-3) Basophils (%) (Auto) 0 % (0-3) Neutrophils # (Auto) 1.6 x10^3uL (1.8-7.7) Lymphocytes # (Auto) 1.3 x10^3/uL (1.0-4.8) Monocytes # (Auto) 0.4 x10^3/uL (0.0-1.1) Eosinophils # (Auto) 0.1 x10^3/uL (0.0-0.7) Basophils # (Auto) 0.0 x10^3/uL (0.0-0.2) Sodium Level 142 mmol/L (136-145) Potassium Level 3.6 mmol/L (3.5-5.1) Chloride Level 106 mmol/L (98-107) Carbon Dioxide Level 26 mmol/L (21-32) Anion Gap 10 (6-14) Blood Urea Nitrogen 16 mg/dL (7-20) Creatinine 0.9 mg/dL (0.6-1.0) Estimated GFR (Cockcroft-Gault) 74.9 Glucose Level 86 mg/dL (70-99) Calcium Level 8.9 mg/dL (8.5-10.1) Assessment and Plan Assessmemt and Plan Problems Medical Problems: (1) Chest pain Status: Acute Comment Review of Relevant I have reviewed the following items deena (where applicable) has been applied. Labs Laboratory Tests Test 07/05/18 11:35 07/05/18 12:05 07/05/18 17:39 07/05/18 20:05 White Blood Count 4.5 x10^3/uL (4.0-11.0) Red Blood Count 4.63 x10^6/uL (3.50-5.40) Hemoglobin 14.6 g/dL (12.0-15.5) Hematocrit 43.4 % (36.0-47.0) Mean Corpuscular Volume 94 fL (79-100) Mean Corpuscular Hemoglobin 32 pg (25-35) Mean Corpuscular Hemoglobin Concent 34 g/dL (31-37) Red Cell Distribution Width 13.8 % (11.5-14.5) Platelet Count 235 x10^3/uL (140-400) Neutrophils (%) (Auto) 67 % (31-73) Lymphocytes (%) (Auto) 26 % (24-48) Monocytes (%) (Auto) 6 % (0-9) Eosinophils (%) (Auto) 1 % (0-3) Basophils (%) (Auto) 1 % (0-3) Neutrophils # (Auto) 3.0 x10^3uL (1.8-7.7) Lymphocytes # (Auto) 1.2 x10^3/uL (1.0-4.8) Monocytes # (Auto) 0.2 x10^3/uL (0.0-1.1) Eosinophils # (Auto) 0.0 x10^3/uL (0.0-0.7) Basophils # (Auto) 0.0 x10^3/uL (0.0-0.2) Sodium Level 138 mmol/L (136-145) Potassium Level 3.9 mmol/L (3.5-5.1) Chloride Level 99 mmol/L (98-107) Carbon Dioxide Level 24 mmol/L (21-32) Anion Gap 15 (6-14) Blood Urea Nitrogen 17 mg/dL (7-20) Creatinine 1.1 mg/dL (0.6-1.0) Estimated GFR (Cockcroft-Gault) 59.4 BUN/Creatinine Ratio 15 (6-20) Glucose Level 97 mg/dL (70-99) Calcium Level 10.1 mg/dL (8.5-10.1) Magnesium Level 1.6 mg/dL (1.8-2.4) Total Bilirubin 0.8 mg/dL (0.2-1.0) Aspartate Amino Transf (AST/SGOT) 12 U/L (15-37) Alanine Aminotransferase (ALT/SGPT) 16 U/L (14-59) Alkaline Phosphatase 80 U/L (46-116) Troponin I Quantitative < 0.017 ng/mL (0.000-0.055) < 0.017 ng/mL (0.000-0.055) < 0.017 ng/mL (0.000-0.055) FC-Eqn-F-Type Natriuretic Peptide 29 pg/mL (0-124) Total Protein 7.7 g/dL (6.4-8.2) Albumin 4.4 g/dL (3.4-5.0) Albumin/Globulin Ratio 1.3 (1.0-1.7) Triglycerides Level 97 mg/dL (0-150) Cholesterol Level 255 mg/dL (0-200) LDL Cholesterol, Calculated 163 mg/dL (0-100) VLDL Cholesterol, Calculated 19 mg/dL (0-40) Non-HDL Cholesterol Calculated 182 mg/dL (0-129) HDL Cholesterol 73 mg/dL (40-60) Cholesterol/HDL Ratio 3.5 Urine Color Yellow Urine Clarity Cloudy Urine pH 5.5 Urine Specific [place] 1.025 Urine Protein Negative mg/dL (NEG-TRACE) Urine Glucose (UA) 100 mg/dL (NEG) Urine Ketones (Stick) 40 mg/dL (NEG) Urine Blood Negative (NEG) Urine Nitrite Negative (NEG) Urine Bilirubin Small (NEG) Urine Urobilinogen Dipstick 1.0 mg/dL (0.2 mg/dL) Urine Leukocyte Esterase Moderate (NEG) Urine RBC 0 /HPF (0-2) Urine WBC 5-10 /HPF (0-4) Urine Squamous Epithelial Cells Many /LPF Urine Bacteria Many /HPF (0-FEW) Urine Mucus Marked /LPF Test 07/06/18 04:00 White Blood Count 3.4 x10^3/uL (4.0-11.0) Red Blood Count 4.05 x10^6/uL (3.50-5.40) Hemoglobin 12.8 g/dL (12.0-15.5) Hematocrit 38.5 % (36.0-47.0) Mean Corpuscular Volume 95 fL (79-100) Mean Corpuscular Hemoglobin 32 pg (25-35) Mean Corpuscular Hemoglobin Concent 33 g/dL (31-37) Red Cell Distribution Width 14.0 % (11.5-14.5) Platelet Count 211 x10^3/uL (140-400) Neutrophils (%) (Auto) 47 % (31-73) Lymphocytes (%) (Auto) 40 % (24-48) Monocytes (%) (Auto) 11 % (0-9) Eosinophils (%) (Auto) 2 % (0-3) Basophils (%) (Auto) 0 % (0-3) Neutrophils # (Auto) 1.6 x10^3uL (1.8-7.7) Lymphocytes # (Auto) 1.3 x10^3/uL (1.0-4.8) Monocytes # (Auto) 0.4 x10^3/uL (0.0-1.1) Eosinophils # (Auto) 0.1 x10^3/uL (0.0-0.7) Basophils # (Auto) 0.0 x10^3/uL (0.0-0.2) Sodium Level 142 mmol/L (136-145) Potassium Level 3.6 mmol/L (3.5-5.1) Chloride Level 106 mmol/L (98-107) Carbon Dioxide Level 26 mmol/L (21-32) Anion Gap 10 (6-14) Blood Urea Nitrogen 16 mg/dL (7-20) Creatinine 0.9 mg/dL (0.6-1.0) Estimated GFR (Cockcroft-Gault) 74.9 Glucose Level 86 mg/dL (70-99) Calcium Level 8.9 mg/dL (8.5-10.1) Laboratory Tests Test 07/05/18 12:05 07/05/18 17:39 07/05/18 20:05 07/06/18 04:00 Urine Color Yellow Urine Clarity Cloudy Urine pH 5.5 Urine Specific [place] 1.025 Urine Protein Negative mg/dL (NEG-TRACE) Urine Glucose (UA) 100 mg/dL (NEG) Urine Ketones (Stick) 40 mg/dL (NEG) Urine Blood Negative (NEG) Urine Nitrite Negative (NEG) Urine Bilirubin Small (NEG) Urine Urobilinogen Dipstick 1.0 mg/dL (0.2 mg/dL) Urine Leukocyte Esterase Moderate (NEG) Urine RBC 0 /HPF (0-2) Urine WBC 5-10 /HPF (0-4) Urine Squamous Epithelial Cells Many /LPF Urine Bacteria Many /HPF (0-FEW) Urine Mucus Marked /LPF Troponin I Quantitative < 0.017 ng/mL (0.000-0.055) < 0.017 ng/mL (0.000-0.055) White Blood Count 3.4 x10^3/uL (4.0-11.0) Red Blood Count 4.05 x10^6/uL (3.50-5.40) Hemoglobin 12.8 g/dL (12.0-15.5) Hematocrit 38.5 % (36.0-47.0) Mean Corpuscular Volume 95 fL (79-100) Mean Corpuscular Hemoglobin 32 pg (25-35) Mean Corpuscular Hemoglobin Concent 33 g/dL (31-37) Red Cell Distribution Width 14.0 % (11.5-14.5) Platelet Count 211 x10^3/uL (140-400) Neutrophils (%) (Auto) 47 % (31-73) Lymphocytes (%) (Auto) 40 % (24-48) Monocytes (%) (Auto) 11 % (0-9) Eosinophils (%) (Auto) 2 % (0-3) Basophils (%) (Auto) 0 % (0-3) Neutrophils # (Auto) 1.6 x10^3uL (1.8-7.7) Lymphocytes # (Auto) 1.3 x10^3/uL (1.0-4.8) Monocytes # (Auto) 0.4 x10^3/uL (0.0-1.1) Eosinophils # (Auto) 0.1 x10^3/uL (0.0-0.7) Basophils # (Auto) 0.0 x10^3/uL (0.0-0.2) Sodium Level 142 mmol/L (136-145) Potassium Level 3.6 mmol/L (3.5-5.1) Chloride Level 106 mmol/L (98-107) Carbon Dioxide Level 26 mmol/L (21-32) Anion Gap 10 (6-14) Blood Urea Nitrogen 16 mg/dL (7-20) Creatinine 0.9 mg/dL (0.6-1.0) Estimated GFR (Cockcroft-Gault) 74.9 Glucose Level 86 mg/dL (70-99) Calcium Level 8.9 mg/dL (8.5-10.1) Medications Current Medications Ondansetron HCl (Zofran) 4 mg 1X ONCE IV ; Start 07/05/18 at 14:15; Stop 07/05/18 at 14:16; Status DC Ondansetron HCl (Zofran) 4 mg PRN Q8HRS PRN IV NAUSEA/VOMITING; Start 07/05/18 at 14:30; Stop 07/06/18 at 14:29 Morphine Sulfate (Morphine Sulfate) 2 mg PRN Q2HR PRN IV PAIN; Start 07/05/18 at 14:30; Stop 07/06/18 at 14:29 Sodium Chloride 1,000 ml @ 100 mls/hr Q10H IV Last administered on 07/06/18at 08:13; Start 07/05/18 at 14:16; Stop 07/06/18 at 14:15 Nitroglycerin (Nitrostat) 0.4 mg PRN Q5MIN PRN SL CHEST PAIN; Start 07/05/18 at 14:30; Stop 07/06/18 at 14:29 Albuterol Sulfate (Ventolin Neb Soln) 2.5 mg PRN Q4HRS PRN INH SHORTNESS OF BREATH; Start 07/05/18 at 15:30 Allopurinol (Zyloprim) 100 mg DAILY PO Last administered on 07/06/18at 08:13; Start 07/05/18 at 16:30 Celecoxib (CeleBREX) 100 mg BID PO Last administered on 07/06/18 08:12; Start 07/05/18 at 21:00 Diclofenac Sodium (Voltaren) 1 serena QID TP Last administered on 07/06/18 08:13; Start 07/05/18 at 17:00 Acetaminophen/ Hydrocodone Bitart (Lortab 10/325) 1 tab PRN Q6HRS PRN PO PAIN Last administered on 07/06/18 08:12; Start 07/05/18 at 15:30 Mupirocin (Bactroban) 1 serena BID TP ; Start 07/05/18 at 21:00; Status Cancel Amlodipine Besylate (Norvasc) 2.5 mg DAILY PO Last administered on 07/06/18 08:13; Start 07/05/18 at 16:30 Non-Formulary Medication (Fluticasone Propionate (Flovent 100MCG Diskus)) 1 puff BID IH ; Start 07/05/18 at 21:00; Status UNV Atorvastatin Calcium (Lipitor) 20 mg QHS PO Last administered on 07/05/18 20:48; Start 07/05/18 at 21:00 Losartan Potassium (Cozaar) 25 mg DAILY PO Last administered on 07/06/18 08:12; Start 07/05/18 at 16:30 Enoxaparin Sodium (Lovenox 40mg Syringe) 40 mg Q24H SQ Last administered on 07/05/18 20:49; Start 07/05/18 at 21:00 Pantoprazole Sodium (Protonix) 40 mg DAILYAC PO Last administered on 07/06/18 05:41; Start 07/05/18 at 16:30 Budesonide (Pulmicort) 0.5 mg RTBID NEB Last administered on 07/05/18 19:16; Start 07/05/18 at 20:00 Magnesium Sulfate 50 ml @ 25 mls/hr 1X ONCE IV Last administered on 07/05/18 16:34; Start 07/05/18 at 16:30; Stop 07/05/18 at 18:29; Status DC Active Scripts Active Medrol (Methylprednisolone) 4 Mg Tab.ds.pk 1 Pkg PO UD Voltaren (Diclofenac Sodium) 100 Gm Gel..gram. 1 Gm TP QID Tramadol Hcl 50 Mg Tablet 1 Tab PO Q6HRS PRN Keflex (Cephalexin) 500 Mg Capsule 1 Cap PO BID Reported Ciprofloxacin Hcl 500 Mg Tablet 500 Mg PO BID Losartan-Hctz 50-12.5 Mg Tab (Losartan/Hydrochlorothiazide) 1 Each Tablet 50 Mg PO DAILY Amlodipine Besylate 10 Mg Tablet 10 Mg PO DAILY Tizanidine Hcl 4 Mg Tablet 4 Mg PO BID Lansoprazole 30 Mg Capsule.dr 30 Mg PO HS Proair Hfa Inhaler (Albuterol Sulfate) 8.5 Gm Hfa.aer.ad 2 Puff IH PRN Q4-6HRS Flovent 100MCG Diskus (Fluticasone Propionate) 100 Mcg Disk.w.dev 1 Puff IH BID Hydrocodone-Apap 10-325 (Hydrocodone Bit/Acetaminophen) 1 Each Tablet 1 Tab PO PRN Q6HRS PRN Diovan (Valsartan) 40 Mg Tablet 1 Tab PO DAILY Tramadol Hcl 50 Mg Tablet 1 Tab PO BID Celebrex (Celecoxib) 100 Mg Capsule 1 Cap PO BID Allopurinol 100 Mg Tablet 1 Tab PO DAILY Crestor (Rosuvastatin Calcium) 5 Mg Tablet 1 Tab PO DAILY Vitals/I & O Vital Sign - Last 24 Hours 07/05/18 07/05/18 07/05/18 07/05/18 12:10 12:40 13:10 13:40 Pulse 88 70 74 78 Resp 15 16 15 16 B/P (MAP) 132/93 (106) 133/89 (104) 122/87 (99) 134/88 (103) Pulse Ox 100 100 99 99 O2 Delivery Room Air Room Air Room Air Room Air 07/05/18 07/05/18 07/05/18 07/05/18 14:10 14:40 15:26 16:16 Temp 98.5 98.5 Pulse 80 90 65 Resp 16 17 16 B/P (MAP) 136/93 (107) 140/99 (113) 131/91 (104) Pulse Ox 100 99 99 O2 Delivery Room Air Room Air Room Air 07/05/18 07/05/18 07/05/18 07/05/18 16:33 16:33 19:00 19:17 Temp 97.3 97.3 Pulse 65 65 76 Resp 18 B/P (MAP) 131/91 131/91 118/80 (93) Pulse Ox 97 97 O2 Delivery Room Air Room Air 07/05/18 07/05/18 07/05/18 07/06/18 19:20 19:34 22:16 02:20 Temp 97.9 98.0 97.9 98.0 Pulse 71 56 Resp 16 18 16 B/P (MAP) 127/82 (97) 124/79 (94) Pulse Ox 99 98 58 O2 Delivery Room Air Room Air Room Air Room Air 07/06/18 07/06/18 07/06/18 07/06/18 07:00 07:44 08:01 08:12 Temp 97.9 97.9 Pulse 59 Resp 16 20 B/P (MAP) 124/79 (94) Pulse Ox 97 97 O2 Delivery Room Air Room Air Room Air 07/06/18 07/06/18 07/06/18 07/06/18 08:12 08:13 09:12 11:00 Temp 98.4 98.4 Pulse 65 69 Resp 18 16 B/P (MAP) 124/79 124/79 122/84 (97) Pulse Ox 97 97 O2 Delivery Room Air Room Air Intake and Output 07/05/18 07/05/18 07/06/18 14:59 22:59 06:59 Intake Total 180 ml 100 ml Output Total 0 ml Balance 180 ml 100 ml Images CXR - No radiographic evidence of an acute cardiopulmonary process. ADAMA MULTANI MD July 06, 2018 12:08
[2018-07-06] MEDS ORDERED: methylPREDNISolone SOD SUCC PF 125 MG/2 ML VIAL. IV ONE (12:30)
[2018-07-06] MEDS: POLYETHYLENE GLYCOL 3350 17 GM PACKET. PO SCH (13:24)
--- NOTE | 2018-07-06 13:28 | PDOC ---
PROGRESS NOTES Subjective Subjective Patient seen and examined The patient reports continued sciatic pain. Objective Objective Vital Signs Date Time Temp Pulse Resp B/P (MAP) Pulse Ox O2 Delivery O2 Flow Rate FiO2 07/06/18 11:00 98.4 69 16 122/84 (97) 97 Room Air 98.4 Intake and Output 07/06/18 07:00 Intake Total 280 ml Output Total 0 ml Balance 280 ml Intake Oral 280 ml Output Urine Total 0 ml # Voids 2 Physical Exam Abdomen: Normal bowel sounds Heart: Regular rate General: mild distress Lungs: Clear to auscultation Assessment Assessment Problems Medical Problems: (1) Chest pain Status: Acute 1. Chest pain. Not consistent with cardiac chest pain. EKG shows no acute changes. Troponins normal. Awaiting echo for LV function. Possible outpatient stress testing. 2. Constipation with possible GI bleed; workup as above. 3. HTN: controlled 4. Family hx of premature CAD 5. Persistent UTI: defer to PCP recently finished anabiotics but just refilled it again Comment Review of Relevant I have reviewed the following items deena (where applicable) has been applied. Labs Laboratory Tests Test 07/05/18 11:35 07/05/18 12:05 07/05/18 17:39 07/05/18 20:05 White Blood Count 4.5 x10^3/uL (4.0-11.0) Red Blood Count 4.63 x10^6/uL (3.50-5.40) Hemoglobin 14.6 g/dL (12.0-15.5) Hematocrit 43.4 % (36.0-47.0) Mean Corpuscular Volume 94 fL (79-100) Mean Corpuscular Hemoglobin 32 pg (25-35) Mean Corpuscular Hemoglobin Concent 34 g/dL (31-37) Red Cell Distribution Width 13.8 % (11.5-14.5) Platelet Count 235 x10^3/uL (140-400) Neutrophils (%) (Auto) 67 % (31-73) Lymphocytes (%) (Auto) 26 % (24-48) Monocytes (%) (Auto) 6 % (0-9) Eosinophils (%) (Auto) 1 % (0-3) Basophils (%) (Auto) 1 % (0-3) Neutrophils # (Auto) 3.0 x10^3uL (1.8-7.7) Lymphocytes # (Auto) 1.2 x10^3/uL (1.0-4.8) Monocytes # (Auto) 0.2 x10^3/uL (0.0-1.1) Eosinophils # (Auto) 0.0 x10^3/uL (0.0-0.7) Basophils # (Auto) 0.0 x10^3/uL (0.0-0.2) Sodium Level 138 mmol/L (136-145) Potassium Level 3.9 mmol/L (3.5-5.1) Chloride Level 99 mmol/L (98-107) Carbon Dioxide Level 24 mmol/L (21-32) Anion Gap 15 (6-14) Blood Urea Nitrogen 17 mg/dL (7-20) Creatinine 1.1 mg/dL (0.6-1.0) Estimated GFR (Cockcroft-Gault) 59.4 BUN/Creatinine Ratio 15 (6-20) Glucose Level 97 mg/dL (70-99) Calcium Level 10.1 mg/dL (8.5-10.1) Magnesium Level 1.6 mg/dL (1.8-2.4) Total Bilirubin 0.8 mg/dL (0.2-1.0) Aspartate Amino Transf (AST/SGOT) 12 U/L (15-37) Alanine Aminotransferase (ALT/SGPT) 16 U/L (14-59) Alkaline Phosphatase 80 U/L (46-116) Troponin I Quantitative < 0.017 ng/mL (0.000-0.055) < 0.017 ng/mL (0.000-0.055) < 0.017 ng/mL (0.000-0.055) GK-Lye-Q-Type Natriuretic Peptide 29 pg/mL (0-124) Total Protein 7.7 g/dL (6.4-8.2) Albumin 4.4 g/dL (3.4-5.0) Albumin/Globulin Ratio 1.3 (1.0-1.7) Triglycerides Level 97 mg/dL (0-150) Cholesterol Level 255 mg/dL (0-200) LDL Cholesterol, Calculated 163 mg/dL (0-100) VLDL Cholesterol, Calculated 19 mg/dL (0-40) Non-HDL Cholesterol Calculated 182 mg/dL (0-129) HDL Cholesterol 73 mg/dL (40-60) Cholesterol/HDL Ratio 3.5 Urine Color Yellow Urine Clarity Cloudy Urine pH 5.5 Urine Specific Terrell 1.025 Urine Protein Negative mg/dL (NEG-TRACE) Urine Glucose (UA) 100 mg/dL (NEG) Urine Ketones (Stick) 40 mg/dL (NEG) Urine Blood Negative (NEG) Urine Nitrite Negative (NEG) Urine Bilirubin Small (NEG) Urine Urobilinogen Dipstick 1.0 mg/dL (0.2 mg/dL) Urine Leukocyte Esterase Moderate (NEG) Urine RBC 0 /HPF (0-2) Urine WBC 5-10 /HPF (0-4) Urine Squamous Epithelial Cells Many /LPF Urine Bacteria Many /HPF (0-FEW) Urine Mucus Marked /LPF Test 07/06/18 04:00 White Blood Count 3.4 x10^3/uL (4.0-11.0) Red Blood Count 4.05 x10^6/uL (3.50-5.40) Hemoglobin 12.8 g/dL (12.0-15.5) Hematocrit 38.5 % (36.0-47.0) Mean Corpuscular Volume 95 fL (79-100) Mean Corpuscular Hemoglobin 32 pg (25-35) Mean Corpuscular Hemoglobin Concent 33 g/dL (31-37) Red Cell Distribution Width 14.0 % (11.5-14.5) Platelet Count 211 x10^3/uL (140-400) Neutrophils (%) (Auto) 47 % (31-73) Lymphocytes (%) (Auto) 40 % (24-48) Monocytes (%) (Auto) 11 % (0-9) Eosinophils (%) (Auto) 2 % (0-3) Basophils (%) (Auto) 0 % (0-3) Neutrophils # (Auto) 1.6 x10^3uL (1.8-7.7) Lymphocytes # (Auto) 1.3 x10^3/uL (1.0-4.8) Monocytes # (Auto) 0.4 x10^3/uL (0.0-1.1) Eosinophils # (Auto) 0.1 x10^3/uL (0.0-0.7) Basophils # (Auto) 0.0 x10^3/uL (0.0-0.2) Sodium Level 142 mmol/L (136-145) Potassium Level 3.6 mmol/L (3.5-5.1) Chloride Level 106 mmol/L (98-107) Carbon Dioxide Level 26 mmol/L (21-32) Anion Gap 10 (6-14) Blood Urea Nitrogen 16 mg/dL (7-20) Creatinine 0.9 mg/dL (0.6-1.0) Estimated GFR (Cockcroft-Gault) 74.9 Glucose Level 86 mg/dL (70-99) Calcium Level 8.9 mg/dL (8.5-10.1) Laboratory Tests Test 07/05/18 17:39 07/05/18 20:05 07/06/18 04:00 Troponin I Quantitative < 0.017 ng/mL (0.000-0.055) < 0.017 ng/mL (0.000-0.055) White Blood Count 3.4 x10^3/uL (4.0-11.0) Red Blood Count 4.05 x10^6/uL (3.50-5.40) Hemoglobin 12.8 g/dL (12.0-15.5) Hematocrit 38.5 % (36.0-47.0) Mean Corpuscular Volume 95 fL (79-100) Mean Corpuscular Hemoglobin 32 pg (25-35) Mean Corpuscular Hemoglobin Concent 33 g/dL (31-37) Red Cell Distribution Width 14.0 % (11.5-14.5) Platelet Count 211 x10^3/uL (140-400) Neutrophils (%) (Auto) 47 % (31-73) Lymphocytes (%) (Auto) 40 % (24-48) Monocytes (%) (Auto) 11 % (0-9) Eosinophils (%) (Auto) 2 % (0-3) Basophils (%) (Auto) 0 % (0-3) Neutrophils # (Auto) 1.6 x10^3uL (1.8-7.7) Lymphocytes # (Auto) 1.3 x10^3/uL (1.0-4.8) Monocytes # (Auto) 0.4 x10^3/uL (0.0-1.1) Eosinophils # (Auto) 0.1 x10^3/uL (0.0-0.7) Basophils # (Auto) 0.0 x10^3/uL (0.0-0.2) Sodium Level 142 mmol/L (136-145) Potassium Level 3.6 mmol/L (3.5-5.1) Chloride Level 106 mmol/L (98-107) Carbon Dioxide Level 26 mmol/L (21-32) Anion Gap 10 (6-14) Blood Urea Nitrogen 16 mg/dL (7-20) Creatinine 0.9 mg/dL (0.6-1.0) Estimated GFR (Cockcroft-Gault) 74.9 Glucose Level 86 mg/dL (70-99) Calcium Level 8.9 mg/dL (8.5-10.1) Medications Current Medications Ondansetron HCl (Zofran) 4 mg 1X ONCE IV ; Start 07/05/18 at 14:15; Stop 07/05/18 at 14:16; Status DC Ondansetron HCl (Zofran) 4 mg PRN Q8HRS PRN IV NAUSEA/VOMITING; Start 07/05/18 at 14:30; Stop 07/06/18 at 14:29 Morphine Sulfate (Morphine Sulfate) 2 mg PRN Q2HR PRN IV PAIN; Start 07/05/18 at 14:30; Stop 07/06/18 at 14:29 Sodium Chloride 1,000 ml @ 100 mls/hr Q10H IV Last administered on 07/06/18at 08:13; Start 07/05/18 at 14:16; Stop 07/06/18 at 14:15 Nitroglycerin (Nitrostat) 0.4 mg PRN Q5MIN PRN SL CHEST PAIN; Start 07/05/18 at 14:30; Stop 07/06/18 at 14:29 Albuterol Sulfate (Ventolin Neb Soln) 2.5 mg PRN Q4HRS PRN INH SHORTNESS OF B REATH; Start 07/05/18 at 15:30 Allopurinol (Zyloprim) 100 mg DAILY PO Last administered on 07/06/18at 08:13; Start 07/05/18 at 16:30 Celecoxib (CeleBREX) 100 mg BID PO Last administered on 07/06/18at 08:12; Start 07/05/18 at 21:00 Diclofenac Sodium (Voltaren) 1 serena QID TP Last administered on 07/06/18 08:13; Start 07/05/18 at 17:00 Acetaminophen/ Hydrocodone Bitart (Lortab 10/325) 1 tab PRN Q6HRS PRN PO PAIN Last administered on 07/06/18 08:12; Start 07/05/18 at 15:30 Mupirocin (Bactroban) 1 serena BID TP ; Start 07/05/18 at 21:00; Status Cancel Amlodipine Besylate (Norvasc) 2.5 mg DAILY PO Last administered on 07/06/18 08:13; Start 07/05/18 at 16:30 Non-Formulary Medication (Fluticasone Propionate (Flovent 100MCG Diskus)) 1 puff BID IH ; Start 07/05/18 at 21:00; Status UNV Atorvastatin Calcium (Lipitor) 20 mg QHS PO Last administered on 07/05/18 20:48; Start 07/05/18 at 21:00 Losartan Potassium (Cozaar) 25 mg DAILY PO Last administered on 07/06/18 08:12; Start 07/05/18 at 16:30 Enoxaparin Sodium (Lovenox 40mg Syringe) 40 mg Q24H SQ Last administered on 07/05/18 20:49; Start 07/05/18 at 21:00 Pantoprazole Sodium (Protonix) 40 mg DAILYAC PO Last administered on 07/06/18 05:41; Start 07/05/18 at 16:30 Budesonide (Pulmicort) 0.5 mg RTBID NEB Last administered on 07/05/18 19:16; Start 07/05/18 at 20:00 Magnesium Sulfate 50 ml @ 25 mls/hr 1X ONCE IV Last administered on 07/05/18 16:34; Start 07/05/18 at 16:30; Stop 07/05/18 at 18:29; Status DC Methylprednisolone Sodium Succinate (SOLU-Medrol 125MG VIAL) 125 mg 1X ONCE IV ; Start 07/06/18 at 12:30; Stop 07/06/18 at 12:31; Status DC Tizanidine HCl (Zanaflex) 4 mg PRN Q8HRS PRN PO MUSCLE SPASMS; Start 07/06/18 at 12:30 Polyethylene Glycol (miraLAX PACKET) 17 gm DAILY PO ; Start 07/06/18 at 12:30 Active Scripts Active Medrol (Methylprednisolone) 4 Mg Tab.ds.pk 1 Pkg PO UD Voltaren (Diclofenac Sodium) 100 Gm Gel..gram. 1 Gm TP QID Tramadol Hcl 50 Mg Tablet 1 Tab PO Q6HRS PRN Keflex (Cephalexin) 500 Mg Capsule 1 Cap PO BID Reported Ciprofloxacin Hcl 500 Mg Tablet 500 Mg PO BID Losartan-Hctz 50-12.5 Mg Tab (Losartan/Hydrochlorothiazide) 1 Each Tablet 50 Mg PO DAILY Amlodipine Besylate 10 Mg Tablet 10 Mg PO DAILY Tizanidine Hcl 4 Mg Tablet 4 Mg PO BID Lansoprazole 30 Mg Capsule.dr 30 Mg PO HS Proair Hfa Inhaler (Albuterol Sulfate) 8.5 Gm Hfa.aer.ad 2 Puff IH PRN Q4-6HRS Flovent 100MCG Diskus (Fluticasone Propionate) 100 Mcg Disk.w.dev 1 Puff IH BID Hydrocodone-Apap 10-325 (Hydrocodone Bit/Acetaminophen) 1 Each Tablet 1 Tab PO PRN Q6HRS PRN Diovan (Valsartan) 40 Mg Tablet 1 Tab PO DAILY Tramadol Hcl 50 Mg Tablet 1 Tab PO BID Celebrex (Celecoxib) 100 Mg Capsule 1 Cap PO BID Allopurinol 100 Mg Tablet 1 Tab PO DAILY Crestor (Rosuvastatin Calcium) 5 Mg Tablet 1 Tab PO DAILY Vitals/I & O Vital Sign - Last 24 Hours 07/05/18 07/05/18 07/05/18 07/05/18 13:40 14:10 14:40 15:26 Temp 98.5 98.5 Pulse 78 80 90 65 Resp 16 16 17 16 B/P (MAP) 134/88 (103) 136/93 (107) 140/99 (113) 131/91 (104) Pulse Ox 99 100 99 99 O2 Delivery Room Air Room Air Room Air 07/05/18 07/05/18 07/05/18 07/05/18 16:16 16:33 16:33 19:00 Temp 97.3 97.3 Pulse 65 65 76 Resp 18 B/P (MAP) 131/91 131/91 118/80 (93) Pulse Ox 97 O2 Delivery Room Air Room Air 07/05/18 07/05/18 07/05/18 07/05/18 19:17 19:20 19:34 22:16 Temp 97.9 97.9 Pulse 71 Resp 16 18 B/P (MAP) 127/82 (97) Pulse Ox 97 99 98 O2 Delivery Room Air Room Air Room Air Room Air 07/06/18 07/06/18 07/06/18 07/06/18 02:20 07:00 07:44 08:01 Temp 98.0 97.9 98.0 97.9 Pulse 56 59 Resp 16 16 B/P (MAP) 124/79 (94) 124/79 (94) Pulse Ox 58 97 O2 Delivery Room Air Room Air Room Air 07/06/18 07/06/18 07/06/18 07/06/18 08:12 08:12 08:13 09:12 Pulse 65 Resp 20 18 B/P (MAP) 124/79 124/79 Pulse Ox 97 97 O2 Delivery Room Air Room Air 07/06/18 11:00 Temp 98.4 98.4 Pulse 69 Resp 16 B/P (MAP) 122/84 (97) Pulse Ox 97 O2 Delivery Room Air Intake and Output 07/05/18 07/05/18 07/06/18 15:00 23:00 07:00 Intake Total 180 ml 100 ml Output Total 0 ml Balance 180 ml 100 ml LORI REZA MD July 06, 2018 13:27
[2018-07-06 15:04] VITALS: BP 109/77
[2018-07-06] MEDS: tiZANidine 4 MG TABLET. PO PRN (17:13)
[2018-07-06 18:25] VITALS: BP 105/68
--- NOTE | 2018-07-06 19:42 | NUR ---
Pt in bed assessment completed vss poc explained pt with pain in back and left side. call light in reach will resume care and continue to monitor pt.
[2018-07-06] MEDS: ATORVASTATIN CALCIUM 20 MG TABLET PO SCH (20:37)
[2018-07-06] MEDS: ENOXAPARIN 40 MG/0.4 ML SYRINGE. SQ SCH (20:38)
[2018-07-06 22:47] VITALS: BP 122/85
[2018-07-07 02:46] VITALS: BP 134/84
[2018-07-07] MEDS: PANTOPRAZOLE 40 MG TABLET.DR. PO SCH (05:38)
[2018-07-07 07:48] VITALS: BP 138/87
[2018-07-07] MEDS: BUDESONIDE 0.5 MG/2 ML NEBU. NEB SCH ×2 (08:00→19:41)
[2018-07-07] MEDS: LOSARTAN POTASSIUM 25 MG TABLET. PO SCH (08:08)
[2018-07-07] MEDS: POLYETHYLENE GLYCOL 3350 17 GM PACKET. PO SCH (08:08)
[2018-07-07] MEDS: DICLOFENAC SODIUM 1% TOPICAL GEL 100GM TUBE. TP SCH ×4 (08:09→20:46)
[2018-07-07] MEDS: CELECOXIB 100 MG CAPSULE. PO SCH ×2 (08:09→20:44)
[2018-07-07] MEDS: amLODIPine BESYLATE 5 MG TABLET PO SCH (08:09)
[2018-07-07] MEDS: ALLOPURINOL 100 MG TABLET. PO SCH (08:09)
--- NOTE | 2018-07-07 12:38 | PDOC ---
PROGRESS NOTES Chief Complaint Chief Complaint Atypical CP - suspect GI Constipation with possible GI bleed - Hgb stable and normal so far- defer to PCP HTN - controlled Family hx of premature CAD Persistent UTI Left sciatica History of Present Illness History of Present Illness This is a pleasant 72 yo female admitted for complains of chest pain. Reports that the other day she was having left back pain below her shoulder blade which was sharp and to her left chest but this was brief and feeling bloated with early satiety with some mild nausea. No vomiting. She had not had BM for 4 days till yesterday and this was hard and black. Denies any palpitations, no exertional CP or SOA. No changes to her activity tolerance. No recent falls, injury. She feel a little stressed but not depressed and this is due to her son that in 05/2018. No past hx of PUD, bleeding, VTE, CAD. 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 Her last colonoscopy was over 10 yrs ago and her last stress test was 2.5 yrs ago. 07/06: Today on ROS notes intense left gluteal pain radiating down into her foot, consistent with prior sciatica. Unable to walk She is having epigastric and back pain while eating lunch Pain better with PPI and left sciatic improved after IV solumedrol yesterday, not able to bear weight well yet. No SOB. No BM as of yet Plan: Check occult stool Bowel regimen PPI Steroids for sciatica, zanaflex If she improves more today and is able to walk, can d/c home on PPI, bowel regimen and steroid/muscle relaxants for sciatica, otherwise, work with PT and likely home in AM Vitals Vitals Vital Signs Date Time Temp Pulse Resp B/P (MAP) Pulse Ox O2 Delivery O2 Flow Rate FiO2 07/07/18 08:09 138/87 07/07/18 08:08 76 07/07/18 08:01 Room Air 07/07/18 07:48 98.1 16 98 98.1 Physical Exam General: Alert, Oriented X3, Cooperative, mild distress Heart: Regular rate Lungs: Clear Abdomen: Normal bowel sounds Extremities: No cyanosis, No edema Skin: No breakdown, No significant lesion Assessment and Plan Assessmemt and Plan Problems Medical Problems: (1) Chest pain Status: Acute Comment Review of Relevant I have reviewed the following items deena (where applicable) has been applied. Labs Laboratory Tests Test 07/05/18 17:39 07/05/18 20:05 07/06/18 04:00 Troponin I Quantitative < 0.017 ng/mL (0.000-0.055) < 0.017 ng/mL (0.000-0.055) White Blood Count 3.4 x10^3/uL (4.0-11.0) Red Blood Count 4.05 x10^6/uL (3.50-5.40) Hemoglobin 12.8 g/dL (12.0-15.5) Hematocrit 38.5 % (36.0-47.0) Mean Corpuscular Volume 95 fL (79-100) Mean Corpuscular Hemoglobin 32 pg (25-35) Mean Corpuscular Hemoglobin Concent 33 g/dL (31-37) Red Cell Distribution Width 14.0 % (11.5-14.5) Platelet Count 211 x10^3/uL (140-400) Neutrophils (%) (Auto) 47 % (31-73) Lymphocytes (%) (Auto) 40 % (24-48) Monocytes (%) (Auto) 11 % (0-9) Eosinophils (%) (Auto) 2 % (0-3) Basophils (%) (Auto) 0 % (0-3) Neutrophils # (Auto) 1.6 x10^3uL (1.8-7.7) Lymphocytes # (Auto) 1.3 x10^3/uL (1.0-4.8) Monocytes # (Auto) 0.4 x10^3/uL (0.0-1.1) Eosinophils # (Auto) 0.1 x10^3/uL (0.0-0.7) Basophils # (Auto) 0.0 x10^3/uL (0.0-0.2) Sodium Level 142 mmol/L (136-145) Potassium Level 3.6 mmol/L (3.5-5.1) Chloride Level 106 mmol/L (98-107) Carbon Dioxide Level 26 mmol/L (21-32) Anion Gap 10 (6-14) Blood Urea Nitrogen 16 mg/dL (7-20) Creatinine 0.9 mg/dL (0.6-1.0) Estimated GFR (Cockcroft-Gault) 74.9 Glucose Level 86 mg/dL (70-99) Calcium Level 8.9 mg/dL (8.5-10.1) Microbiology 07/05/18 Urine Culture - Final, Complete 07/05/18 Urine Culture Result 1 (FLORA) - Final, Complete Medications Current Medications Ondansetron HCl (Zofran) 4 mg 1X ONCE IV ; Start 07/05/18 at 14:15; Stop 07/05/18 at 14:16; Status DC Ondansetron HCl (Zofran) 4 mg PRN Q8HRS PRN IV NAUSEA/VOMITING; Start 07/05/18 at 14:30; Stop 07/06/18 at 14:29; Status DC Morphine Sulfate (Morphine Sulfate) 2 mg PRN Q2HR PRN IV PAIN; Start 07/05/18 at 14:30; Stop 07/06/18 at 14:29; Status DC Sodium Chloride 1,000 ml @ 100 mls/hr Q10H IV Last administered on 07/06/18at 08:13; Start 07/05/18 at 14:16; Stop 07/06/18 at 14:15; Status DC Nitroglycerin (Nitrostat) 0.4 mg PRN Q5MIN PRN SL CHEST PAIN; Start 07/05/18 at 14:30; Stop 07/06/18 at 14:29; Status DC Albuterol Sulfate (Ventolin Neb Soln) 2.5 mg PRN Q4HRS PRN INH SHORTNESS OF BREATH; Start 07/05/18 at 15:30 Allopurinol (Zyloprim) 100 mg DAILY PO Last administered on 07/07/18at 08:09; Start 07/05/18 at 16:30 Celecoxib (CeleBREX) 100 mg BID PO Last administered on 07/07/18at 08:09; Start 07/05/18 at 21:00 Diclofenac Sodium (Voltaren) 1 serena QID TP Last administered on 07/07/18at 08:09; Start 07/05/18 at 17:00 Acetaminophen/ Hydrocodone Bitart (Lortab 10/325) 1 tab PRN Q6HRS PRN PO PAIN Last administered on 07/06/18at 20:38; Start 07/05/18 at 15:30 Mupirocin (Bactroban) 1 serena BID TP ; Start 07/05/18 at 21:00; Status Cancel Amlodipine Besylate (Norvasc) 2.5 mg DAILY PO Last administered on 07/07/18 08:09; Start 07/05/18 at 16:30 Non-Formulary Medication (Fluticasone Propionate (Flovent 100MCG Diskus)) 1 puff BID IH ; Start 07/05/18 at 21:00; Status UNV Atorvastatin Calcium (Lipitor) 20 mg QHS PO Last administered on 07/06/18 20:37; Start 07/05/18 at 21:00 Losartan Potassium (Cozaar) 25 mg DAILY PO Last administered on 07/07/18 08:08; Start 07/05/18 at 16:30 Enoxaparin Sodium (Lovenox 40mg Syringe) 40 mg Q24H SQ Last administered on 07/06/18 20:38; Start 07/05/18 at 21:00 Pantoprazole Sodium (Protonix) 40 mg DAILYAC PO Last administered on 07/07/18 05:38; Start 07/05/18 at 16:30 Budesonide (Pulmicort) 0.5 mg RTBID NEB Last administered on 07/06/18 20:05; Start 07/05/18 at 20:00 Magnesium Sulfate 50 ml @ 25 mls/hr 1X ONCE IV Last administered on 07/05/18 16:34; Start 07/05/18 at 16:30; Stop 07/05/18 at 18:29; Status DC Methylprednisolone Sodium Succinate (SOLU-Medrol 125MG VIAL) 125 mg 1X ONCE IV Last administered on 07/06/18 13:24; Start 07/06/18 at 12:30; Stop 07/06/18 at 12:31; Status DC Tizanidine HCl (Zanaflex) 4 mg PRN Q8HRS PRN PO MUSCLE SPASMS Last administered on 07/06/18 17:13; Start 07/06/18 at 12:30 Polyethylene Glycol (miraLAX PACKET) 17 gm DAILY PO Last administered on 07/07/18 08:08; Start 07/06/18 at 12:30 Active Scripts Active Medrol (Methylprednisolone) 4 Mg Tab.ds.pk 1 Pkg PO UD Voltaren (Diclofenac Sodium) 100 Gm Gel..gram. 1 Gm TP QID Tramadol Hcl 50 Mg Tablet 1 Tab PO Q6HRS PRN Keflex (Cephalexin) 500 Mg Capsule 1 Cap PO BID Reported Ciprofloxacin Hcl 500 Mg Tablet 500 Mg PO BID Losartan-Hctz 50-12.5 Mg Tab (Losartan/Hydrochlorothiazide) 1 Each Tablet 50 Mg PO DAILY Amlodipine Besylate 10 Mg Tablet 10 Mg PO DAILY Tizanidine Hcl 4 Mg Tablet 4 Mg PO BID Lansoprazole 30 Mg Capsule.dr 30 Mg PO HS Proair Hfa Inhaler (Albuterol Sulfate) 8.5 Gm Hfa.aer.ad 2 Puff IH PRN Q4-6HRS Flovent 100MCG Diskus (Fluticasone Propionate) 100 Mcg Disk.w.dev 1 Puff IH BID Hydrocodone-Apap 10-325 (Hydrocodone Bit/Acetaminophen) 1 Each Tablet 1 Tab PO PRN Q6HRS PRN Diovan (Valsartan) 40 Mg Tablet 1 Tab PO DAILY Tramadol Hcl 50 Mg Tablet 1 Tab PO BID Celebrex (Celecoxib) 100 Mg Capsule 1 Cap PO BID Allopurinol 100 Mg Tablet 1 Tab PO DAILY Crestor (Rosuvastatin Calcium) 5 Mg Tablet 1 Tab PO DAILY Vitals/I & O Vital Sign - Last 24 Hours 07/06/18 07/06/18 07/06/18 07/06/18 15:04 18:25 19:25 20:07 Temp 98.8 98.4 98.8 98.4 Pulse 63 66 Resp 14 14 B/P (MAP) 109/77 (88) 105/68 (80) Pulse Ox 95 97 97 O2 Delivery Room Air Room Air Room Air Room Air 07/06/18 07/06/18 07/06/18 07/07/18 20:38 21:38 22:47 02:46 Temp 98.7 98.4 98.7 98.4 Pulse 67 60 Resp 16 16 18 16 B/P (MAP) 122/85 (97) 134/84 (101) Pulse Ox 96 98 98 98 O2 Delivery Room Air Room Air Room Air Room Air 07/07/18 07/07/18 07/07/18 07/07/18 07:48 08:01 08:08 08:09 Temp 98.1 98.1 Pulse 68 76 Resp 16 B/P (MAP) 138/87 (104) 138/87 138/87 Pulse Ox 98 O2 Delivery Room Air Room Air Intake and Output 07/06/18 07/06/18 07/07/18 14:59 22:59 06:59 Intake Total 0 ml 1491 ml 100 ml Output Total 700 ml 0 ml Balance 0 ml 791 ml 100 ml ADAMA MULTANI MD July 07, 2018 12:38
[2018-07-07] MEDS ORDERED: MAGNESIUM CITRATE 296 ML SOLUTION. PO ONE (13:15)
[2018-07-07] MEDS: predniSONE 20 MG TABLET PO SCH (13:52)
[2018-07-07 15:12] VITALS: BP 143/88
--- NOTE | 2018-07-07 16:33 | PDOC ---
PROGRESS NOTES Subjective Subjective Patient seen and examined She is feeling better today. Objective Objective Vital Signs Date Time Temp Pulse Resp B/P (MAP) Pulse Ox O2 Delivery O2 Flow Rate FiO2 07/07/18 15:12 98.0 67 17 143/88 (106) 97 Room Air 98.0 Intake and Output 07/07/18 07:00 Intake Total 1591 ml Output Total 700 ml Balance 891 ml Intake Oral 460 ml IV Total 1131 ml Output Urine Total 700 ml # Voids 1 Physical Exam Abdomen: Normal bowel sounds Heart: Regular rate General: mild distress Lungs: Clear to auscultation Assessment Assessment Problems Medical Problems: (1) Chest pain Status: Acute 1. Chest pain. Not consistent with cardiac chest pain. EKG shows no acute changes. Troponins normal. Echo today. Possible outpatient stress testing. 2. Constipation with possible GI bleed; resolving. Workup as above. 3. HTN: controlled 4. Family hx of premature CAD 5. Persistent UTI: defer to PCP recently finished anabiotics but just refilled it again. Comment Review of Relevant I have reviewed the following items deena (where applicable) has been applied. Labs Laboratory Tests Test 07/05/18 17:39 07/05/18 20:05 07/06/18 04:00 Troponin I Quantitative < 0.017 ng/mL (0.000-0.055) < 0.017 ng/mL (0.000-0.055) White Blood Count 3.4 x10^3/uL (4.0-11.0) Red Blood Count 4.05 x10^6/uL (3.50-5.40) Hemoglobin 12.8 g/dL (12.0-15.5) Hematocrit 38.5 % (36.0-47.0) Mean Corpuscular Volume 95 fL (79-100) Mean Corpuscular Hemoglobin 32 pg (25-35) Mean Corpuscular Hemoglobin Concent 33 g/dL (31-37) Red Cell Distribution Width 14.0 % (11.5-14.5) Platelet Count 211 x10^3/uL (140-400) Neutrophils (%) (Auto) 47 % (31-73) Lymphocytes (%) (Auto) 40 % (24-48) Monocytes (%) (Auto) 11 % (0-9) Eosinophils (%) (Auto) 2 % (0-3) Basophils (%) (Auto) 0 % (0-3) Neutrophils # (Auto) 1.6 x10^3uL (1.8-7.7) Lymphocytes # (Auto) 1.3 x10^3/uL (1.0-4.8) Monocytes # (Auto) 0.4 x10^3/uL (0.0-1.1) Eosinophils # (Auto) 0.1 x10^3/uL (0.0-0.7) Basophils # (Auto) 0.0 x10^3/uL (0.0-0.2) Sodium Level 142 mmol/L (136-145) Potassium Level 3.6 mmol/L (3.5-5.1) Chloride Level 106 mmol/L (98-107) Carbon Dioxide Level 26 mmol/L (21-32) Anion Gap 10 (6-14) Blood Urea Nitrogen 16 mg/dL (7-20) Creatinine 0.9 mg/dL (0.6-1.0) Estimated GFR (Cockcroft-Gault) 74.9 Glucose Level 86 mg/dL (70-99) Calcium Level 8.9 mg/dL (8.5-10.1) Microbiology 07/05/18 Urine Culture - Final, Complete 07/05/18 Urine Culture Result 1 (FLORA) - Final, Complete Medications Current Medications Ondansetron HCl (Zofran) 4 mg 1X ONCE IV ; Start 07/05/18 at 14:15; Stop 07/05/18 at 14:16; Status DC Ondansetron HCl (Zofran) 4 mg PRN Q8HRS PRN IV NAUSEA/VOMITING; Start 07/05/18 at 14:30; Stop 07/06/18 at 14:29; Status DC Morphine Sulfate (Morphine Sulfate) 2 mg PRN Q2HR PRN IV PAIN; Start 07/05/18 at 14:30; Stop 07/06/18 at 14:29; Status DC Sodium Chloride 1,000 ml @ 100 mls/hr Q10H IV Last administered on 07/06/18at 08:13; Start 07/05/18 at 14:16; Stop 07/06/18 at 14:15; Status DC Nitroglycerin (Nitrostat) 0.4 mg PRN Q5MIN PRN SL CHEST PAIN; Start 07/05/18 at 14:30; Stop 07/06/18 at 14:29; Status DC Albuterol Sulfate (Ventolin Neb Soln) 2.5 mg PRN Q4HRS PRN INH SHORTNESS OF BREATH; Start 07/05/18 at 15:30 Allopurinol (Zyloprim) 100 mg DAILY PO Last administered on 07/07/18 08:09; Start 07/05/18 at 16:30 Celecoxib (CeleBREX) 100 mg BID PO Last administered on 07/07/18 08:09; Start 07/05/18 at 21:00 Diclofenac Sodium (Voltaren) 1 serena QID TP Last administered on 07/07/18 13:53; Start 07/05/18 at 17:00 Acetaminophen/ Hydrocodone Bitart (Lortab 10/325) 1 tab PRN Q6HRS PRN PO PAIN Last administered on 07/06/18 20:38; Start 07/05/18 at 15:30 Mupirocin (Bactroban) 1 serena BID TP ; Start 07/05/18 at 21:00; Status Cancel Amlodipine Besylate (Norvasc) 2.5 mg DAILY PO Last administered on 07/07/18 08:09; Start 07/05/18 at 16:30 Non-Formulary Medication (Fluticasone Propionate (Flovent 100MCG Diskus)) 1 puff BID IH ; Start 07/05/18 at 21:00; Status UNV Atorvastatin Calcium (Lipitor) 20 mg QHS PO Last administered on 07/06/18 20:37; Start 07/05/18 at 21:00 Losartan Potassium (Cozaar) 25 mg DAILY PO Last administered on 07/07/18 08:08; Start 07/05/18 at 16:30 Enoxaparin Sodium (Lovenox 40mg Syringe) 40 mg Q24H SQ Last administered on 07/06/18 20:38; Start 07/05/18 at 21:00 Pantoprazole Sodium (Protonix) 40 mg DAILYAC PO Last administered on 07/07/18 05:38; Start 07/05/18 at 16:30 Budesonide (Pulmicort) 0.5 mg RTBID NEB Last administered on 07/06/18 20:05; Start 07/05/18 at 20:00 Magnesium Sulfate 50 ml @ 25 mls/hr 1X ONCE IV Last administered on 07/05/18at 16:34; Start 07/05/18 at 16:30; Stop 07/05/18 at 18:29; Status DC Methylprednisolone Sodium Succinate (SOLU-Medrol 125MG VIAL) 125 mg 1X ONCE IV Last administered on 07/06/18at 13:24; Start 07/06/18 at 12:30; Stop 07/06/18 at 12:31; Status DC Tizanidine HCl (Zanaflex) 4 mg PRN Q8HRS PRN PO MUSCLE SPASMS Last administered on 07/06/18at 17:13; Start 07/06/18 at 12:30 Polyethylene Glycol (miraLAX PACKET) 17 gm DAILY PO Last administered on at 08:08; Start 07/06/18 at 12:30 Prednisone (Prednisone) 40 mg DAILY PO Last administered on 07/07/18at 13:52; Start 07/07/18 at 13:15 Magnesium Citrate (Citroma) 296 ml 1X ONCE PO Last administered on 07/07/18at 13:53; Start 07/07/18 at 13:15; Stop 07/07/18 at 13:16; Status DC Active Scripts Active Medrol (Methylprednisolone) 4 Mg Tab.ds.pk 1 Pkg PO UD Voltaren (Diclofenac Sodium) 100 Gm Gel..gram. 1 Gm TP QID Tramadol Hcl 50 Mg Tablet 1 Tab PO Q6HRS PRN Keflex (Cephalexin) 500 Mg Capsule 1 Cap PO BID Reported Ciprofloxacin Hcl 500 Mg Tablet 500 Mg PO BID Losartan-Hctz 50-12.5 Mg Tab (Losartan/Hydrochlorothiazide) 1 Each Tablet 50 Mg PO DAILY Amlodipine Besylate 10 Mg Tablet 10 Mg PO DAILY Tizanidine Hcl 4 Mg Tablet 4 Mg PO BID Lansoprazole 30 Mg Capsule.dr 30 Mg PO HS Proair Hfa Inhaler (Albuterol Sulfate) 8.5 Gm Hfa.aer.ad 2 Puff IH PRN Q4-6HRS Flovent 100MCG Diskus (Fluticasone Propionate) 100 Mcg Disk.w.dev 1 Puff IH BID Hydrocodone-Apap 10-325 (Hydrocodone Bit/Acetaminophen) 1 Each Tablet 1 Tab PO PRN Q6HRS PRN Diovan (Valsartan) 40 Mg Tablet 1 Tab PO DAILY Tramadol Hcl 50 Mg Tablet 1 Tab PO BID Celebrex (Celecoxib) 100 Mg Capsule 1 Cap PO BID Allopurinol 100 Mg Tablet 1 Tab PO DAILY Crestor (Rosuvastatin Calcium) 5 Mg Tablet 1 Tab PO DAILY Vitals/I & O Vital Sign - Last 24 Hours 07/06/18 07/06/18 07/06/18 07/06/18 18:25 19:25 20:07 20:38 Temp 98.4 98.4 Pulse 66 Resp 14 16 B/P (MAP) 105/68 (80) Pulse Ox 97 97 96 O2 Delivery Room Air Room Air Room Air Room Air 07/06/18 07/06/18 07/07/18 07/07/18 21:38 22:47 02:46 07:48 Temp 98.7 98.4 98.1 98.7 98.4 98.1 Pulse 67 60 68 Resp 16 18 16 16 B/P (MAP) 122/85 (97) 134/84 (101) 138/87 (104) Pulse Ox 98 98 98 98 O2 Delivery Room Air Room Air Room Air Room Air 07/07/18 07/07/18 07/07/18 07/07/18 08:01 08:08 08:09 15:12 Temp 98.0 98.0 Pulse 76 67 Resp 17 B/P (MAP) 138/87 138/87 143/88 (106) Pulse Ox 97 O2 Delivery Room Air Room Air Intake and Output 07/06/18 07/06/18 07/07/18 15:00 23:00 07:00 Intake Total 0 ml 1491 ml 100 ml Output Total 700 ml 0 ml Balance 0 ml 791 ml 100 ml LORI REZA MD July 07, 2018 16:33
--- NOTE | 2018-07-07 19:02 | CARD ---
MR#: [id number] Date of Study: 07/07/2018 Ordering Physician: RENATA JONES, Referring Physician: RENATA JONES Tech: Ilda Sinclair RDCS APPROVED REPORT EXAM: Two-dimensional and M-mode echocardiogram with Doppler and color Doppler. Other Information Quality : GoodHR: 67bpm Rhythm : NSR INDICATION Chest Pain 2D DIMENSIONS Left Atrium(2D)3.6 (1.6-4.0cm)IVSd1.0 (0.7-1.1cm) Aortic Root(2D)2.8 (2.0-3.7cm)LVDd4.0 (3.9-5.9cm) LVOT Diameter2.0 (1.8-2.4cm)PWd0.9 (0.7-1.1cm) LVDs2.7 (2.5-4.0cm)FS (%) 31.4 % SV41.6 mlLVEF(%)59.9 (>50%) Aortic Valve AoV Peak Yaya.120.1cm/sAoV VTI25.1cm AO Peak GR.5.8mmHgLVOT Peak Yaya.100.7cm/s AO Mean GR.4mmHgAVA (VMAX)2.64cm2 Mitral Valve MV E Txmlczai56.0cm/sMV DECEL IQYK248xg MV A Luaqqsuo47.7cm/sE/A Ratio1.0 MV A Lwdqfruq048rd Pulmonary Valve PV Peak Cnxxbfkp22.2cm/s Tricuspid Valve TR P. Hcysfaid844xp/sRAP TATRYZTB9hyRt TR Peak Gr.53meRuFOEW72crWu LEFT VENTRICLE The left ventricle is normal size. There is normal left ventricular wall thickness. The left ventricu lar systolic function is normal and the ejection fraction is within normal range. Left ventricular ej ection fraction is 55-60%. There is normal LV segmental wall motion. Transmitral Doppler flow pattern is Grade I-abnormal relaxation pattern. No left ventricle thrombus noted on this study. There is no ventricular septal defect visualized. There is no left ventricular aneurysm. RIGHT VENTRICLE The right ventricle is normal size. There is normal right ventricular wall thickness. The right ventr icular systolic function is normal. ATRIA The left atrium size is normal. The right atrium size is normal. The interatrial septum is intact wit h no evidence for an atrial septal defect or patent foramen ovale as noted on 2-D or Doppler imaging. AORTIC VALVE The aortic valve is normal in structure and function. Doppler and Color Flow revealed no significant aortic regurgitation. There is no significant aortic valvular stenosis. There is no aortic valvular v egetation. MITRAL VALVE The mitral valve is normal in structure and function. There is no evidence of mitral valve prolapse. There is no mitral valve stenosis. Doppler and Color Flow revealed mild mitral regurgitation. TRICUSPID VALVE The tricuspid valve is normal in structure and function. Doppler and Color Flow revealed mild tricusp id regurgitation. There is no tricuspid valve prolapse or vegetation. There is no tricuspid valve kristyn nosis. PULMONIC VALVE The pulmonary valve is normal in structure and function. Doppler and Color Flow revealed mild pulmoni c valvular regurgitation. There is no pulmonic valvular stenosis. GREAT VESSELS The aortic root is normal in size. AO Ascend 3.7cm. The IVC is normal in size and collapses >50% with inspiration. PERICARDIAL EFFUSION There is no pleural effusion. There is no evidence of significant pericardial effusion. Critical Notification Date: 07/07/2018 Time: 13:50 Physician Name:milind Critical Value: Yes Response Time:13:50 Report Read Back <Conclusion> The left ventricle is normal size. The left ventricular systolic function is normal and the ejection fraction is within normal range. Left ventricular ejection fraction is 55-60%. There is no significant aortic valvular stenosis. Doppler and Color Flow revealed no significant aortic regurgitation. Doppler and Color Flow revealed mild mitral regurgitation. Doppler and Color Flow revealed mild tricuspid regurgitation. Signed by : David Mcclendon MD Electronically Approved : 07/07/2018 19:02:15
[2018-07-07 19:20] VITALS: BP 132/88
[2018-07-07] MEDS: ATORVASTATIN CALCIUM 20 MG TABLET PO SCH (20:44)
[2018-07-07] MEDS: ENOXAPARIN 40 MG/0.4 ML SYRINGE. SQ SCH (20:45)
[2018-07-07 23:25] VITALS: BP 140/93
[2018-07-08 02:40] VITALS: BP 149/90
[2018-07-08 04:17] LABS: FECAL OB PT NEGATIVE (NEG)
[2018-07-08 07:00] VITALS: BP 144/88
[2018-07-08] MEDS: BUDESONIDE 0.5 MG/2 ML NEBU. NEB SCH (08:00)
[2018-07-08] MEDS: ALLOPURINOL 100 MG TABLET. PO SCH (08:35)
[2018-07-08] MEDS: HYDROcodone/APAP 10/325 1 TAB TABLET PO PRN ×2 (08:35→17:17)
[2018-07-08] MEDS: amLODIPine BESYLATE 5 MG TABLET PO SCH (08:36)
[2018-07-08] MEDS: predniSONE 20 MG TABLET PO SCH (08:36)
[2018-07-08] MEDS: CELECOXIB 100 MG CAPSULE. PO SCH ×2 (08:36→21:20)
[2018-07-08] MEDS: PANTOPRAZOLE 40 MG TABLET.DR. PO SCH (08:36)
[2018-07-08] MEDS: POLYETHYLENE GLYCOL 3350 17 GM PACKET. PO SCH (08:37)
[2018-07-08] MEDS: LOSARTAN POTASSIUM 25 MG TABLET. PO SCH (08:37)
[2018-07-08] MEDS: DICLOFENAC SODIUM 1% TOPICAL GEL 100GM TUBE. TP SCH ×4 (08:38→21:00)
--- NOTE | 2018-07-08 10:36 | PDOC ---
CARDIO Progress Notes Date and Time Date of Service 07/08/18 Time of Evaluation 1015 Subjective Subjective: No Chest Pain, No shortness of breath, No Palpitations, Other (c/o sciatica) Vitals Vitals Vital Signs Date Time Temp Pulse Resp B/P (MAP) Pulse Ox O2 Delivery O2 Flow Rate FiO2 07/08/18 09:40 20 Room Air 07/08/18 08:37 65 144/88 07/08/18 07:00 98.4 96 98.4 Weight Weight [ ] Input and Output Intake and Output Intake and Output 07/08/18 07:00 Intake Total 1280 ml Output Total 850 ml Balance 430 ml Intake Oral 1280 ml Output Urine Total 850 ml # Bowel Movements 1 Laboratory Labs Laboratory Tests Test 07/07/18 23:55 Stool Occult Blood Negative (NEG) Microbiology Micro Microbiology 07/05/18 Urine Culture - Final, Complete 07/05/18 Urine Culture Result 1 (FLORA) - Final, Complete Physical Exam HEENT: Neck Supple W Full Motion Chest: Symmetric LUNGS: Clear to Auscultation Heart: S1S2, RRR Abdomen: Soft N/T Extremities: No Edema Neurology: alert, oriented, follow commands Assessment Assessment 1. Chest pain, atypical. AMI ruled out. Echo showed normal LV systolic function with an EF of 55-60%. Most probably GI in nature. On PPI 2. HTN: controlled 3. Hyperlipemia 4. Sciatica Recommendations Continue statin, add ASA. Will arrange for outpatient ischemic evaluation given CAD risk factors. F/u with Dr. Aguirre 08/08/2018 at 2:30pm NITHIN JOLLEY APRN July 08, 2018 10:36
[2018-07-08 11:00] VITALS: BP 120/78
[2018-07-08] MEDS: tiZANidine 4 MG TABLET. PO PRN (11:02)
--- NOTE | 2018-07-08 11:48 | NUR ---
SS following for discharge planning. SS reviewed pt chart. Pt is from home alone and is currently on room air. PT evaluated and recommended home independent; home with outpatient. No discharge needs noted at this time. SS will continue to follow for pending discharge needs.
--- NOTE | 2018-07-08 13:27 | PDOC ---
PROGRESS NOTES Chief Complaint Chief Complaint Atypical CP - suspect GI Constipation with possible GI bleed - Hgb stable and normal so far- defer to PCP HTN - controlled Family hx of premature CAD Persistent UTI Left sciatica History of Present Illness History of Present Illness Patient seen and examined Patient denies current chest pain Biggest complaint is currently L sided leg pain consistent with sciatica Vitals Vitals Vital Signs Date Time Temp Pulse Resp B/P (MAP) Pulse Ox O2 Delivery O2 Flow Rate FiO2 07/08/18 12:48 98 Room Air 07/08/18 11:00 97.5 67 18 120/78 (92) 97.5 Physical Exam General: mild distress Heart: Regular rate Lungs: Clear Abdomen: Normal bowel sounds Extremities: No cyanosis, No edema Skin: No breakdown, No significant lesion Labs LABS Laboratory Tests Test 07/07/18 23:55 Stool Occult Blood Negative (NEG) Review of Systems Review of Systems Patient denies MANRIQUE Patient reports L Thigh pain that radiates down leg Assessment and Plan Assessmemt and Plan Problems Medical Problems: (1) Chest pain Status: Acute Assessment: Atypical CP - suspect GI Constipation with possible GI bleed HTN Family hx of premature CAD Persistent UTI Left sciatica Plan: Cardiac monitoring PPI Steroids for sciatica, zanaflex DVT ppx PT/OT Hope to discharge to Home pending subspecialists input Comment Review of Relevant I have reviewed the following items deena (where applicable) has been applied. Labs Laboratory Tests Test 07/07/18 23:55 Stool Occult Blood Negative (NEG) Laboratory Tests Test 07/07/18 23:55 Stool Occult Blood Negative (NEG) Microbiology 07/05/18 Urine Culture - Final, Complete 07/05/18 Urine Culture Result 1 (FLORA) - Final, Complete Medications Current Medications Ondansetron HCl (Zofran) 4 mg 1X ONCE IV ; Start 07/05/18 at 14:15; Stop 07/05/18 at 14:16; Status DC Ondansetron HCl (Zofran) 4 mg PRN Q8HRS PRN IV NAUSEA/VOMITING; Start 07/05/18 at 14:30; Stop 07/06/18 at 14:29; Status DC Morphine Sulfate (Morphine Sulfate) 2 mg PRN Q2HR PRN IV PAIN; Start 07/05/18 at 14:30; Stop 07/06/18 at 14:29; Status DC Sodium Chloride 1,000 ml @ 100 mls/hr Q10H IV Last administered on 07/06/18 08:13; Start 07/05/18 at 14:16; Stop 07/06/18 at 14:15; Status DC Nitroglycerin (Nitrostat) 0.4 mg PRN Q5MIN PRN SL CHEST PAIN; Start 07/05/18 at 14:30; Stop 07/06/18 at 14:29; Status DC Albuterol Sulfate (Ventolin Neb Soln) 2.5 mg PRN Q4HRS PRN INH SHORTNESS OF BREATH; Start 07/05/18 at 15:30 Allopurinol (Zyloprim) 100 mg DAILY PO Last administered on 07/08/18 08:35; Start 07/05/18 at 16:30 Celecoxib (CeleBREX) 100 mg BID PO Last administered on 07/08/18 08:36; Start 07/05/18 at 21:00 Diclofenac Sodium (Voltaren) 1 serena QID TP Last administered on 07/08/18 13:02; Start 07/05/18 at 17:00 Acetaminophen/ Hydrocodone Bitart (Lortab 10/325) 1 tab PRN Q6HRS PRN PO PAIN Last administered on 07/08/18 08:35; Start 07/05/18 at 15:30 Mupirocin (Bactroban) 1 serena BID TP ; Start 07/05/18 at 21:00; Status Cancel Amlodipine Besylate (Norvasc) 2.5 mg DAILY PO Last administered on 07/08/18 08:36; Start 07/05/18 at 16:30 Non-Formulary Medication (Fluticasone Propionate (Flovent 100MCG Diskus)) 1 puff BID IH ; Start 07/05/18 at 21:00; Status UNV Atorvastatin Calcium (Lipitor) 20 mg QHS PO Last administered on 07/07/18 20:44; Start 07/05/18 at 21:00 Losartan Potassium (Cozaar) 25 mg DAILY PO Last administered on 07/08/18 08:37; Start 07/05/18 at 16:30 Enoxaparin Sodium (Lovenox 40mg Syringe) 40 mg Q24H SQ Last administered on 07/07/18 20:45; Start 07/05/18 at 21:00 Pantoprazole Sodium (Protonix) 40 mg DAILYAC PO Last administered on 07/08/18 08:36; Start 07/05/18 at 16:30 Budesonide (Pulmicort) 0.5 mg RTBID NEB Last administered on 07/06/18 20:05; Start 07/05/18 at 20:00; Stop 07/08/18 at 12:50; Status DC Magnesium Sulfate 50 ml @ 25 mls/hr 1X ONCE IV Last administered on 07/05/18at 16:34; Start 07/05/18 at 16:30; Stop 07/05/18 at 18:29; Status DC Methylprednisolone Sodium Succinate (SOLU-Medrol 125MG VIAL) 125 mg 1X ONCE IV Last administered on 07/06/18 13:24; Start 07/06/18 at 12:30; Stop 07/06/18 at 12:31; Status DC Tizanidine HCl (Zanaflex) 4 mg PRN Q8HRS PRN PO MUSCLE SPASMS Last administered on 07/08/18 11:02; Start 07/06/18 at 12:30 Polyethylene Glycol (miraLAX PACKET) 17 gm DAILY PO Last administered on 07/07/18 08:08; Start 07/06/18 at 12:30 Prednisone (Prednisone) 40 mg DAILY PO Last administered on 07/08/18 08:36; Start 07/07/18 at 13:15 Magnesium Citrate (Citroma) 296 ml 1X ONCE PO Last administered on 07/07/18at 13:53; Start 07/07/18 at 13:15; Stop 07/07/18 at 13:16; Status DC Active Scripts Active Medrol (Methylprednisolone) 4 Mg Tab.ds.pk 1 Pkg PO UD Voltaren (Diclofenac Sodium) 100 Gm Gel..gram. 1 Gm TP QID Tramadol Hcl 50 Mg Tablet 1 Tab PO Q6HRS PRN Keflex (Cephalexin) 500 Mg Capsule 1 Cap PO BID Reported Ciprofloxacin Hcl 500 Mg Tablet 500 Mg PO BID Losartan-Hctz 50-12.5 Mg Tab (Losartan/Hydrochlorothiazide) 1 Each Tablet 50 Mg PO DAILY Amlodipine Besylate 10 Mg Tablet 10 Mg PO DAILY Tizanidine Hcl 4 Mg Tablet 4 Mg PO BID Lansoprazole 30 Mg Capsule.dr 30 Mg PO HS Proair Hfa Inhaler (Albuterol Sulfate) 8.5 Gm Hfa.aer.ad 2 Puff IH PRN Q4-6HRS Flovent 100MCG Diskus (Fluticasone Propionate) 100 Mcg Disk.w.dev 1 Puff IH BID Hydrocodone-Apap 10-325 (Hydrocodone Bit/Acetaminophen) 1 Each Tablet 1 Tab PO PRN Q6HRS PRN Diovan (Valsartan) 40 Mg Tablet 1 Tab PO DAILY Tramadol Hcl 50 Mg Tablet 1 Tab PO BID Celebrex (Celecoxib) 100 Mg Capsule 1 Cap PO BID Allopurinol 100 Mg Tablet 1 Tab PO DAILY Crestor (Rosuvastatin Calcium) 5 Mg Tablet 1 Tab PO DAILY Vitals/I & O Vital Sign - Last 24 Hours 07/07/18 07/07/18 07/07/18 07/07/18 15:12 19:20 19:35 23:25 Temp 98.0 98.9 98.8 98.0 98.9 98.8 Pulse 67 65 63 Resp 17 20 20 B/P (MAP) 143/88 (106) 132/88 (103) 140/93 (109) Pulse Ox 97 99 96 O2 Delivery Room Air Room Air Room Air Room Air 07/08/18 07/08/18 07/08/18 07/08/18 02:40 07:00 08:00 08:35 Temp 98.6 98.4 98.6 98.4 Pulse 57 54 Resp 18 18 18 B/P (MAP) 149/90 (109) 144/88 (106) Pulse Ox 97 96 O2 Delivery Room Air Room Air Room Air Room Air 07/08/18 07/08/18 07/08/18 07/08/18 08:36 08:37 09:40 11:00 Temp 97.5 97.5 Pulse 54 65 67 Resp 20 18 B/P (MAP) 144/88 144/88 120/78 (92) Pulse Ox 98 O2 Delivery Room Air Room Air 07/08/18 12:48 Pulse Ox 98 O2 Delivery Room Air Intake and Output 07/07/18 07/07/18 07/08/18 14:59 22:59 06:59 Intake Total 280 ml 700 ml 300 ml Output Total 250 ml 600 ml Balance 30 ml 700 ml -300 ml MARBIN GARCIA III DO July 08, 2018 13:27
[2018-07-08 15:00] VITALS: BP 119/79
[2018-07-08 19:18] VITALS: BP 137/85
[2018-07-08] MEDS: ENOXAPARIN 40 MG/0.4 ML SYRINGE. SQ SCH (21:20)
[2018-07-08] MEDS: ATORVASTATIN CALCIUM 20 MG TABLET PO SCH (21:20)
[2018-07-08 22:47] VITALS: BP 136/84
[2018-07-09 02:19] VITALS: BP 129/72
[2018-07-09 07:00] VITALS: BP 168/96
[2018-07-09] MEDS: CELECOXIB 100 MG CAPSULE. PO SCH (08:19)
[2018-07-09] MEDS: ALLOPURINOL 100 MG TABLET. PO SCH (08:19)
[2018-07-09] MEDS: LOSARTAN POTASSIUM 25 MG TABLET. PO SCH (08:19)
[2018-07-09] MEDS: PANTOPRAZOLE 40 MG TABLET.DR. PO SCH (08:19)
[2018-07-09] MEDS: POLYETHYLENE GLYCOL 3350 17 GM PACKET. PO SCH (08:20)
[2018-07-09] MEDS: predniSONE 20 MG TABLET PO SCH (08:20)
[2018-07-09] MEDS: amLODIPine BESYLATE 5 MG TABLET PO SCH (08:20)
[2018-07-09] MEDS: DICLOFENAC SODIUM 1% TOPICAL GEL 100GM TUBE. TP SCH ×2 (08:20→13:03)
[2018-07-09 11:00] VITALS: BP 145/93
[2018-07-09] MEDS: HYDROcodone/APAP 10/325 1 TAB TABLET PO PRN (13:02)
--- NOTE | 2018-07-09 13:03 | DS ---
DATE OF DISCHARGE: 07/09/2018 ADMISSION DIAGNOSIS: Chest pain. DISCHARGE DIAGNOSES: 1. Atypical chest pain. 2. Sciatica. HOSPITAL COURSE: The patient is a pleasant 72-year-old female who presented with chest pain. She was admitted, we consulted Cardiology. We did serial enzymes, serial EKGs and cardiac monitoring. Her workup so far is negative. They wanted to do an outpatient stress test. We certainly agree and appreciate their input. We plan to discharge. I did see her this morning. Her heart tones are normal. Her lungs were clear. She wants to go home. We plan to discharge with p.r.n. Percocet. DISPOSITION: Home. ACTIVITY: As tolerated. DIET: Low sodium. MEDICATIONS: Please see the MRAD. I did give her a prescription for p.r.n. Percocet 10 mg, #30. TOTAL TIME ON DISCHARGE: 33 minutes. LOBOL Saul GARCIA DO DR: BRIAN/bishop JOB#: [id number] / [id number]
--- NOTE | 2018-07-09 15:40 | NUR ---
Discharge Note: LYNDA FORREST [address] [place] [address] Discharge instructions and discharge home medications reviewed with Patient and a copy given. All questions have been answered and understanding verbalized. The following instructions and handouts were given: sciatica Discontinued IV lines Patient discharged to home with self care via wheelchair
== END 2018-07-09 14:30 | disposition home or self-care (01) | DRG 392 ==
LOC: ER 11:19 → 2 NORTH 14:16
PROVIDERS: ADMIT Family Medicine; ATTEND Family Medicine
DX: K21.9 Gastro-esophageal reflux disease without esophagitis (principal); N39.0 Urinary tract infection, site not specified; I10 Essential (primary) hypertension; M19.90 Unspecified osteoarthritis, unspecified site; F41.9 Anxiety disorder, unspecified; F32.9 Major depressive disorder, single episode, unspecified; E78.5 Hyperlipidemia, unspecified; M79.7 Fibromyalgia; G47.00 Insomnia, unspecified; K59.00 Constipation, unspecified; M54.32 Sciatica, left side; J45.909 Unspecified asthma, uncomplicated; Z86.73 Personal history of transient ischemic attack (TIA), and cerebral infarction without residual deficits; Z82.49 Family history of ischemic heart disease and other diseases of the circulatory system
CPT/HCPCS: 36415; 71045; 80048; 80053; 80061; 81001; 82274; 83735; 83880; 84484; 85025; 87086; 93005; 93306; 94640; 94760; J1650; J2930; J3475; J7030; J7512; J7626; 99285-25

== ENCOUNTER → 2018-07-30 | Outpatient (CLI) | payer MEDICARE, MEDICAID ==
[2018-07-09 11:00] VITALS: BP 145/93
[~2018-07-30] MED LIST changes: +AMLO10TA8 PO; +CIPR500T PO; +LANS30CA PO; +LOSA1TAB19 PO; +REGADENOSON 0.4 MG/5 ML DISP.SYRIN. IV ONE; +TIZA4TAB PO
--- NOTE | 2018-07-30 12:28 | RAD ---
MR#: [id number] Date of Study: 07/30/2018 Ordering Physician: LORI REZA, Referring Physician: ISHMAEL CHRISTENSEN Tech: DANA Hermosillo, MARIANNA (R) (N) APPROVED REPORT Test Type: Pharmacological Stress Nurse/Tech: Virginia Sanford RN Test Indications: Chest Pain Cardiac History: Family history, Hypertension Medications: See Electronic Medical Record Medical History: See Electronic Medical Record Resting ECG: SR Resting Heart Rate: 68 bpm Resting Blood Pressure: 142/88mmHg Pretest Chest Pain: No chest pain Nurse/Tech Notes S1,S2 and lungs clear to auscultation. Consent: The procedure was explained to the patient in lay terms. Informed consent was witnessed. Yanick eout was entered into [employer] History and Stress Test performed by DANA Hermosillo, MARIANNA (R) (N) Pharm. Details Pharmacologic stress testing was performed using 0.4mg per 5ml of regadenoson given intravenously ove r 7-10 seconds. Stress Symptoms No chest pain or symptoms. POST EXERCISE Reason for Termination: Infusion complete Target HR: No Max HR: 91 bpm Max Blood Pressure: 123/80mmHg Blood Pressure response to exercise: Normal blood pressure response during stress. Heart Rate response to exercise: WNL Chest Pain: No. Arrhythmia: No. ST Change: No. INTERPRETATION Stress EKG Conclusion: Baseline EKG showed sinus rhythm. No ischemic changes at peak stress. No arr hythmias. Imaging Protocol IMAGE PROTOCOL: Rest Tc-99m/stress Tc-99m 1 day Rest: Stress: Viability: Radiopharm.Tc99m WttscqivmBf65q Sestamibi Abeb72mEq 33mCi Img Date 07/30/2018 07/30/2018 Inj-Img Fmib96esr. 60min. Rest Admin Site:IV - Left HandAdministrator:RT Corina (R)(N) Stress Admin Site: IV - Left HandAdministrator: RT Corina (R)(N) STRESS DATA End Diast. Vol.64.0mlAv. Heart Rate68.0bpm End Syst. Vol.15.0mlCO Index BSA0.0L/min Myocardial Kipm083.0gEject. Ctcziuhi89.0% Stress Rates Pk. Fill Rate2.84EDV/secLVtime Pk. Fill 238.22msec Pk. Empty Rate4.04ESV/secLVtime Pk. Nmbyu730.68msec 1/3 Pk. Fill1.40EDV/sec Stress Scores Regional WT2.00Summed WT16.00 Regional WM0.00Summed WM4.00 Study quality was good. Left Ventricular size was Normal at Rest and Stress. Lung uptake was . Left Ventricular ejection fraction is 65%. The rest and stress images show normal perfusion, normal contraction and thickening. LV Perf. Quant 17 Seg. SSS0.00 17 Seg. SRS1.00 17 Seg. SDS0.00 Stress Defect Extent (% LAD)0.00Rest Defect Extent (% LAD)5.60Rev. Defect Extent (% LAD)0.00 Stress Defect Extent (% LCX) 0.00Rest Defect Extent (% LCX)0.00Rev. Defect Extent (% LCX)0.00 Stress Defect Extent (% RCA)0.00Rest Defect Extent (% RCA)0.00Rev. Defect Extent (% RCA)0.00 Stress Defect Extent (% KAL)0.00Rest Defect Extent (% KAL)2.60Rev. Defect Extent (% KAL)0.00 Conclusion 1. Regadenoson cardioisotope stress test did not show any evidence of ischemia or infarct. 2. Normal left ventricular systolic function with ejection fraction calculated at 65%. 3. Low risk for cardiac events. Signed by : Herbert Whitten, Electronically Approved : 07/30/2018 12:28:05
== END | disposition home or self-care (01) ==
LOC: NM 07:51
PROVIDERS: ATTEND Internal Medicine Cardiovascular Disease
DX: I10 Essential (primary) hypertension (principal); R07.9 Chest pain, unspecified
CPT/HCPCS: 78452; 93017; A9500; J2785

== ENCOUNTER → 2018-10-17 | Outpatient (CLI) | payer MEDICARE, MEDICAID ==
[~2018-10-17] MED LIST changes: -REGADENOSON 0.4 MG/5 ML DISP.SYRIN. IV ONE; -TIZA4TAB PO; +TIZA4TAB2 PO
--- NOTE | 2018-10-18 09:42 | RAD ---
DATE: 10/17/2018 10:25 AM EXAM: DIGITAL SCREEN BILAT W/CAD HISTORY: routine screening evaluation. COMPARISON: Prior mammographic imaging 10/15/2017, 10/13/2016, 09/16/2015 Bilateral full field craniocaudal and mediolateral oblique images were obtained using digital technique. This study was interpreted with the benefit of Computerized Aided Detection (CAD). FINDINGS: Breast Density: SCATTERED The breast parenchyma shows scattered fibroglandular densities. Breast parenchyma level B Benign calcifications are present. The parenchymal pattern appears stable. No suspicious masses, microcalcifications or architectural distortion is present to suggest malignancy in either breast. The visualized axillae are unremarkable. IMPRESSION: No mammographic evidence of malignancy. BI-RADS CATEGORY: 2 BENIGN FINDING(S) RECOMMENDED FOLLOW-UP: 12M 12 MONTH FOLLOW-UP Annual screening mammography is recommended, unless clinically indicated sooner based on symptoms or change in physical exam. PQRS compliance statement: Patient information was entered into a reminder system with a target due date for the next mammogram. Mammography is a sensitive method for finding small breast cancers, but it does not detect them all and is not a substitute for careful clinical examination. A negative mammogram does not negate a clinically suspicious finding and should not result in delay in biopsying a clinically suspicious abnormality. "Our facility is accredited by the [employer] Mammography [employer]."
== END | disposition home or self-care (01) ==
LOC: MAMMO 10:15
PROVIDERS: ATTEND Family Medicine
DX: Z12.31 Encounter for screening mammogram for malignant neoplasm of breast (principal); N64.89 Other specified disorders of breast
CPT/HCPCS: 77067

== ENCOUNTER → 2019-10-22 | Outpatient (CLI) | payer MEDICARE, MEDICAID ==
[~2019-10-22] MED LIST changes: -DICL100G18 TP; +DICL100G54 TP
--- NOTE | 2019-10-24 16:39 | RAD ---
EXAM: BILATERAL DIGITAL SCREENING MAMMOGRAPHY. HISTORY: Routine mammographic screening. TECHNIQUE: Bilateral full field digital images were obtained in CC and MLO projections. Computer-aided detection was applied. COMPARISON: 10/17/2018. COMPOSITION: B. There are scattered areas of fibroglandular density. FINDINGS: A density superiorly on the lateral view does not have clear correlate on the CC view and is likely from superimposition. Another small density laterally on the CC view is also likely from superimposition. Small nodules and scattered calcifications elsewhere are stable. There is no suspicious finding on the right. BI-RADS CATEGORY 0: Incomplete--Needs Additional Imaging Evaluation. RECOMMENDATION: 1. Spot compression of a new asymmetry superiorly on the left MLO view, likely medially on the CC view. Sonography if necessary. 2. Spot compression of a small density laterally on the left CC view. Electronically signed by: Jamarcus Robles MD (10/24/2019 4:36 PM) [id number]
== END | disposition home or self-care (01) ==
LOC: MAMMO 14:39
PROVIDERS: ATTEND Family Medicine
DX: Z12.31 Encounter for screening mammogram for malignant neoplasm of breast (principal); N64.89 Other specified disorders of breast
CPT/HCPCS: 77067

== ENCOUNTER → 2019-10-30 | Outpatient (CLI) | payer MEDICARE, MEDICAID ==
--- NOTE | 2019-10-30 16:42 | RAD ---
DATE: 10/30/2019 10:22 AM EXAM: DIGITAL DIAGNOSTIC LT, BREAST LEFT HISTORY: Screening recall for left breast density COMPARISON: Screening mammograms of 10/22/2019, 10/15/2017, 08/24/2014 and 06/25/2010 Technique: A full-field left ML view along with spot compression MLO views were obtained. Thereafter, targeted ultrasound of the superior left breast was pursued. This study was interpreted with the benefit of Computerized Aided Detection (CAD). FINDINGS: Breast Density: SCATTERED The breast parenchyma shows scattered fibroglandular densities. Breast parenchyma level B Additional views of the left breast showed a change in configuration of the questioned asymmetry in a pattern suggesting overlap of fibroglandular tissue. Targeted ultrasound of the superior left breast was pursued from the 10:00 position through the 2:00 position to encompass the area of questioned asymmetry on mammography. This revealed islands of dense fiber glandular tissue with no discrete mass or obvious architectural distortion. No adenopathy on sonographic survey of the left axilla. IMPRESSION: Probably benign asymmetry representing overlap of fibroglandular tissue. Recommend six-month follow-up left diagnostic mammogram with possible targeted ultrasound. Discussed with patient BI-RADS CATEGORY: 3 PROBABLY BENIGN FINDING(S)-SHORT INTERVAL FOLLOW-UP SUGGESTED RECOMMENDED FOLLOW-UP: 6M 6 MONTH FOLLOW-UP Left diagnostic mammogram and possible targeted left breast ultrasound. PQRS compliance statement: Patient information was entered into a reminder system with a target due date for the next mammogram. Mammography is a sensitive method for finding small breast cancers, but it does not detect them all and is not a substitute for careful clinical examination. A negative mammogram does not negate a clinically suspicious finding and should not result in delay in biopsying a clinically suspicious abnormality. "Our facility is accredited by the [employer] Mammography [employer]."
== END | disposition home or self-care (01) ==
LOC: MAMMO 10:10
PROVIDERS: ATTEND Family Medicine
DX: R92.8 Other abnormal and inconclusive findings on diagnostic imaging of breast (principal)
CPT/HCPCS: 76641; 77065

== ENCOUNTER → 2020-06-01 | Outpatient (CLI) | payer MEDICARE, MEDICAID ==
[~2020-06-01] MED LIST changes: +AMLO-187 PO; -AMLO10TA8 PO; -CIPR500T PO; +CIPR500T2 PO; -FLUT100D IH; +FLUT100D2 IH
[2020-06-01 13:20] LABS: BILIRUBIN,URINE NEGATIVE (NEG); CLARITY,URINE CLEAR; COLOR,URINE YELLOW; NITRITE,URINE NEGATIVE (NEG); PH,URINE 5.5 (<5.0-8.0); PROTEIN,URINE NEGATIVE (NEG-TRACE); UROBILINOGEN,URINE 0.2 mg/dL (0.2 mg/dL)
[2020-06-01 13:32] LABS: RBC,URINE 0 /HPF (0-2)
[2020-06-01 13:33] LABS: BACTERIA,URINE MODERATE /HPF (0-FEW); BASO % 0 % (0-3); CALCIUM 9.2 mg/dL (8.5-10.1); CREATININE 1.2 mg/dL (0.6-1.0); EOS # 0.1 x10^3/uL (0.0-0.7); EOS % 1 % (0-3); GFR 53.4; HEMATOCRIT 40.7 % (36.0-47.0); HEMOGLOBIN 13.7 g/dL (12.0-15.5); LYMPH # 2.1 x10^3/uL (1.0-4.8); LYMPH % 38 % (24-48); MEAN CORPUSCULAR HEMOGLOBIN 32 pg (25-35); MEAN CORPUSCULAR HGB CONC 34 g/dL (31-37); MEAN CORPUSCULAR VOLUME 96 fL (79-100); MONO # 0.4 x10^3/uL (0.0-1.1); MONO % 8 % (0-9); NEUT % 53 % (31-73); PLATELET COUNT 245 x10^3/uL (140-400); POTASSIUM 3.6 mmol/L (3.5-5.1); RED BLOOD COUNT 4.26 x10^6/uL (3.50-5.40); RED CELL DISTRIBUTION WIDTH 14.5 % (11.5-14.5); TOTAL BILIRUBIN 0.3 mg/dL (0.2-1.0); TOTAL PROTEIN 8.1 g/dL (6.4-8.2); WBC,URINE 20-40 /HPF (0-4); WHITE BLOOD COUNT 5.6 x10^3/uL (4.0-11.0)
[2020-06-01 14:27] LABS: CHOLESTEROL/HDL RATIO 2.4
--- NOTE | 2020-06-01 15:51 | RAD ---
DATE: 06/01/2020 12:41 PM EXAM: DIGITAL DIAGNOSTIC LT HISTORY: 74-year-old woman presents for six-month follow-up probably benign asymmetry in the left breast initially recalled from screening. COMPARISON: 10/30/2019, 10/22/2019, 10/17/2018 and 10/15/2017 mammograms and left breast ultrasound of 10/30/2019. TECHNIQUE: CC and MLO views of the left breast were performed. This study was interpreted with the benefit of Computerized Aided Detection (CAD). FINDINGS: Breast Density: SCATTERED The breast parenchyma shows scattered fibroglandular densities. Breast parenchyma level B Two focal asymmetries in the superior and medial left breast previously evaluated by ultrasound show no interval mammographic change and correspond with dense ridges of fibroglandular tissue as seen on ultrasound. No developing mass, suspicious calcification or architectural distortion. IMPRESSION: No mammographic evidence of malignancy. BI-RADS CATEGORY: 2 BENIGN FINDING(S) RECOMMENDED FOLLOW-UP: 12M 12 MONTH FOLLOW-UP Recommend return to routine screening which will be due in 6 months PQRS compliance statement: Patient information was entered into a reminder system with a target due date for the next mammogram. Mammography is a sensitive method for finding small breast cancers, but it does not detect them all and is not a substitute for careful clinical examination. A negative mammogram does not negate a clinically suspicious finding and should not result in delay in biopsying a clinically suspicious abnormality. "Our facility is accredited by the [employer] Mammography Program."
[2020-06-02 06:01] LABS: HEMOGLOBIN A1C 5.7 % (4.8-5.6)
== END ==
LOC: MAMMO 12:52
PROVIDERS: ATTEND Family Medicine
DX: R92.8 Other abnormal and inconclusive findings on diagnostic imaging of breast (principal); I10 Essential (primary) hypertension; E78.5 Hyperlipidemia, unspecified; E03.9 Hypothyroidism, unspecified; E55.9 Vitamin D deficiency, unspecified; N39.0 Urinary tract infection, site not specified; R73.9 Hyperglycemia, unspecified; M54.5 Low back pain
CPT/HCPCS: 36415; 77065; 80053; 80061; 81001; 83036; 84443; 85025; 87086

== ENCOUNTER 2020-06-19 13:51 | Emergency (ER) | payer MEDICARE, MEDICAID ==
[~2020-06-19] VITALS: Ht 160 cm; Wt 70.0 kg
[2020-06-19 15:00] VITALS: BP 135/93
--- NOTE | 2020-06-19 15:20 | PHYS DOC ---
Past Medical History Past Medical History: Asthma, Hypertension, Stroke Additional Past Medical Histor: Osteoarthritis, spinal stenosis Past Surgical History: Other Additional Past Surgical Histo: R hand surgery, R knee surgery Smoking Status: Former Smoker Alcohol Use: Occasionally Drug Use: None General Adult EDM: Chief Complaint: MECHANICAL FALL HPI: HPI: Patient is a 74 year old female who presented to ER for evaluation of bilateral wrist pain, right knee pain, headache, neck pain after she fell out of her bed 4 days ago for. Patient is not on blood thinner, denies any loss of consciousness. Patient continues have a headache and neck pain, bilateral wrist pain right knee pain since the accident. Patient denies any chest pain, no abdominal pain, no nausea vomiting, no back pain Review of Systems: Review of Systems: Constitutional: Denies fever or chills. [] Eyes: Denies change in visual acuity. [] HENT: Denies nasal congestion or sore throat. [] Respiratory: Denies cough or shortness of breath. [] Cardiovascular: Denies chest pain or edema. [] GI: Denies abdominal pain, nausea, vomiting, bloody stools or diarrhea. [] : Denies dysuria. [] Musculoskeletal: Positive for bilateral wrist pain, right knee pain, positive for neck pain for Integument: Denies rash. [] Neurologic: Positive for headache, no focal weakness or numbness. Endocrine: Denies polyuria or polydipsia. [] Lymphatic: Denies swollen glands. [] Psychiatric: Denies depression or anxiety. [] Heart Score: C/O Chest Pain: N/A Risk Factors: Risk Factors: DM, Current or recent (<one month) smoker, HTN, HLP, family history of CAD, obesity. Risk Scores: Score 0 - 3: 2.5% MACE over next 6 weeks - Discharge Home Score 4 - 6: 20.3% MACE over next 6 weeks - Admit for Clinical Observation Score 7 - 10: 72.7% MACE over next 6 weeks - Early Invasive Strategies Allergies: Allergies: Allergies Coded Allergies Type Severity Reaction Last Updated Verified No Known Drug Allergies 11/26/13 No Physical Exam: PE: Constitutional: Well developed, well nourished, no acute distress, non-toxic appearance. [] HENT: Normocephalic, right-sided forehead with skin abrasion. Bilateral external ears normal, oropharynx moist, no oral exudates, nose normal. [] Eyes: PERRLA, EOMI, conjunctiva normal, no discharge. [] Neck: Normal range of motion, no tenderness, supple, no stridor. [] Cardiovascular:Heart rate regular rhythm, no murmur [] Lungs & Thorax: Bilateral breath sounds clear to auscultation [] Abdomen: Bowel sounds normal, soft, no tenderness, no masses, no pulsatile masses. [] Skin: Warm, dry, no erythema, no rash. [] Back: No tenderness, no CVA tenderness. [] Extremities: Bilateral wrist tender to palpation, no obvious deformity. Right anterior knee with superficial skin contusion, tender to palpation, knee joint is stable. Neurologic: Alert and oriented X 3, normal motor function, normal sensory function, no focal deficits noted. [] Psychologic: Affect normal, judgement normal, mood normal. [] EKG: EKG: [] Radiology/Procedures: Radiology/Procedures: [][address] [address] IMAGING REPORT Signed PATIENT: LYNDA FORREST LACCOUNT: [id number] : 1945 LOCATION: ER AGE: 74 SEX: F EXAM STATUS: PRE ER ORD. PHYSICIAN: MACI TRUJILLO DO REASON: fell, both wrists pain PROCEDURE: WRIST BILAT 3V Exam: Right and left wrist 3 views INDICATION: Fall, both rest pain TECHNIQUE: Frontal, lateral and oblique views of the right and left wrist Comparisons: None FINDINGS: Right wrist: Diffuse osteopenia. No acute fractures. Soft tissues are unremarkable. There is loss of the radiocarpal joint with associated subchondral sclerosis. Left wrist: Diffuse osteopenia. No acute fractures. Soft tissues are unremarkable. There is loss of the radiocarpal joint with associated subchondral sclerosis. IMPRESSION: No acute osseous abnormality of the right or left wrist. Degenerative changes as described above. Electronically signed by: Duke Hernandez MD (06/19/2020 4:03 PM) [facility] DICTATED and SIGNED BY: DUKE HERNANDEZ MD DATE: 06/19/20 [id number] [address] [place] [address] IMAGING REPORT Signed PATIENT: LYNDA FORREST LACCOUNT: [id number] : 1945 LOCATION: ER AGE: 74 SEX: F EXAM STATUS: PRE ER ORD. PHYSICIAN: MACI TRUJILLO DO REASON: fell, head and neck pain PROCEDURE: CT HEAD AND CERVICAL SPINE WO CT scan of the head without contrast 06/19/2020 Clinical History: Fall with head injury. Technique: Unenhanced, contiguous, 5 mm axial sections were obtained through the head. One or more of the following individualized dose reduction techniques were utilized for this study: 1. Automated exposure control. 2. Adjustment of the mA and/or kV according to patient size. 3. Use of iterative reconstruction technique. Findings: There is generalized parenchymal atrophy. Areas of decreased attenuation are seen within the periventricular and subcortical white matter of both cerebral hemispheres consistent with areas of small vessel ischemic dis ease. No acute parenchymal abnormality is seen. No extra-axial fluid collection is noted. No skull fracture is seen. Impression: No acute intracranial abnormality is seen. CT scan of the cervical spine without contrast 06/19/2020 Clinical history: Fall with neck injury. Technique: Unenhanced, contiguous, 0.625 mm axial sections were obtained through the cervical spine. 3 mm reconstructed axial and 3 mm coronal and sagittal reconstructed images were obtained. One or more of the following individualized dose reduction techniques were utilized for this study: 1. Automated exposure control. 2. Adjustment of the mA and/or kV according to patient size. 3. Use of iterative reconstruction technique. Findings: Mild lateral curvature of the cervical spine is seen convex to the left on the coronal and sagittal reconstructed images. There is reversal of the normal cervical lordosis. Degenerative changes consisting of varying degrees of disc space narrowing, vertebral endplate sclerosis and mild to moderate anterior and posterior vertebral body osteophyte formation are seen throughout the cervical disc spaces. Mild to moderate atherosclerotic calcification is seen in the region of the carotid bifurcations, left greater than right. No fracture or subluxation of the cervical vertebrae is seen. Degenerative changes are seen involving the uncovertebral and facet joints throughout the cervical disc spaces. Impression: No fracture or subluxation of the cervical vertebra is identified. Electronically signed by: Juan Rodriguez MD (06/19/2020 4:16 PM) [id number] DICTATED and SIGNED BY: JUAN RODRIGUEZ MD DATE: 06/19/20 [id number] Course & Med Decision Making: Course & Med Decision Making Pertinent Labs and Imaging studies reviewed. (See chart for details) [] Dragon Disclaimer: Dragon Disclaimer: This electronic medical record was generated, in whole or in part, using a voice recognition dictation system. Departure Departure Impression: Primary Impression: Head contusion Additional Impressions: Pain in both wrists Contusion of right knee Disposition: HOME / SELF CARE / HOMELESS Condition: IMPROVED Referrals: ELIZABETH CONCEPCION MD (PCP) follow up with your doctor as needed Patient Instructions: Contusion, Head Injury, Adult, Wrist Sprain with Rehab- [facility] Additional Instructions: Thank you for visiting our Emergency Department. We appreciate you trusting us with your care. If any additional problems come up don't hesitate to return to visit us. Please follow up with your primary care provider so they can plan additional care if needed and know about the problem that you had. If symptoms worsen come back to the Emergency Department. Any concerning symptoms that start such as chest pain, shortness of air, weakness or numbness on one side of the body, running high fevers or any other concerning symptoms return to the ER. Scripts Naproxen Sodium (ANAPROX DS) 550 Mg Tablet 1 TAB PO BID PRN for PAIN for 5 Days, #10 TAB 0 Refills Prov: MACI TRUJILLO DO 06/19/20 MACI TRUJILLO DO Jun 19, 2020 15:20
--- NOTE | 2020-06-19 16:05 | RAD ---
Exam: Right and left wrist 3 views INDICATION: Fall, both rest pain TECHNIQUE: Frontal, lateral and oblique views of the right and left wrist Comparisons: None FINDINGS: Right wrist: Diffuse osteopenia. No acute fractures. Soft tissues are unremarkable. There is loss of the radiocarp al joint with associated subchondral sclerosis. Left wrist: Diffuse osteopenia. No acute fractures. Soft tissues are unremarkable. There is loss of the radiocarp al joint with associated subchondral sclerosis. IMPRESSION: No acute osseous abnormality of the right or left wrist. Degenerative changes as described above. Electronically signed by: Duke Rios MD (06/19/2020 4:03 PM) BR[facility]O
--- NOTE | 2020-06-19 16:07 | RAD ---
Exam: Right knee 3 views INDICATION: Fall, right knee injury TECHNIQUE: Frontal, lateral and oblique views of the right knee Comparisons: None FINDINGS: Bone mineralization is normal. No acute or healed fractures. Degenerative change at the medial compar tment of the right knee. There is soft tissue swelling overlying the right wrist IMPRESSION: Soft tissue swelling at the right wrist posteriorly without acute fracture identified. Electronically signed by: Duke Rios MD (06/19/2020 4:05 PM) [facility]O
--- NOTE | 2020-06-19 16:18 | RAD ---
CT scan of the head without contrast 06/19/2020 Clinical History: Fall with head injury. Technique: Unenhanced, contiguous, 5 mm axial sections were obtained through the head. One or more of the following individualized dose reduction techniques were utilized for this study: 1. Automated exposure control. 2. Adjustment of the mA and/or kV according to patient size. 3. Use of iterative reconstruction technique. Findings: There is generalized parenchymal atrophy. Areas of decreased attenuation are seen within t he periventricular and subcortical white matter of both cerebral hemispheres consistent with areas of small vessel ischemic disease. No acute parenchymal abnormality is seen. No extra-axial fluid collec tion is noted. No skull fracture is seen. Impression: No acute intracranial abnormality is seen. CT scan of the cervical spine without contrast 06/19/2020 Clinical history: Fall with neck injury. Technique: Unenhanced, contiguous, 0.625 mm axial sections were obtained through the cervical spine. 3 mm reconstructed axial and 3 mm coronal and sagittal reconstructed images were obtained. One or more of the following individualized dose reduction techniques were utilized for this study: 1. Automated exposure control. 2. Adjustment of the mA and/or kV according to patient size. 3. Use of iterative reconstruction technique. Findings: Mild lateral curvature of the cervical spine is seen convex to the left on the coronal and sagittal reconstructed images. There is reversal of the normal cervical lordosis. Degenerative change s consisting of varying degrees of disc space narrowing, vertebral endplate sclerosis and mild to mod erate anterior and posterior vertebral body osteophyte formation are seen throughout the cervical dis c spaces. Mild to moderate atherosclerotic calcification is seen in the region of the carotid bifurca tions, left greater than right. No fracture or subluxation of the cervical vertebrae is seen. Degenerative changes are seen involving the uncovertebral and facet joints throughout the cervical disc spaces. Impression: No fracture or subluxation of the cervical vertebra is identified. Electronically signed by: Juan Rodriguez MD (06/19/2020 4:16 PM) [id number]
[2020-06-19] MEDS ORDERED: NAPR-682 PO (16:26)
== END 2020-06-19 16:35 | disposition home or self-care (01) ==
LOC: ER 13:51
DX: S80.01XA Contusion of right knee, initial encounter (principal); S00.83XA Contusion of other part of head, initial encounter; M25.531 Pain in right wrist; M54.2 Cervicalgia; M25.532 Pain in left wrist; J45.909 Unspecified asthma, uncomplicated; I10 Essential (primary) hypertension; I25.2 Old myocardial infarction; Z87.891 Personal history of nicotine dependence; Z98.890 Other specified postprocedural states; W18.39XA Other fall on same level, initial encounter; Y93.89 Activity, other specified; Y92.89 Other specified places as the place of occurrence of the external cause; Y99.8 Other external cause status
CPT/HCPCS: 70450; 72125; 73562; 99285; 73110-50

== ENCOUNTER → 2020-11-18 | Outpatient (CLI) | payer MEDICARE, MEDICAID ==
[~2020-11-18] MED LIST changes: +NAPR-682 PO
--- NOTE | 2020-11-18 10:27 | RAD ---
EXAM: Bilateral digital screening mammogram with tomosynthesis. HISTORY: 75-year-old female presents for screening mammography. TECHNIQUE: Full-field digital craniocaudal and mediolateral oblique 2D and 3D tomosynthesis images of both breasts are obtained for evaluation. Computer aided detection was applied. COMPARISON: 06/01/2020, a 22/09/2019, 10/22/2019, 10/17/2018 BREAST PARENCHYMAL DENSITY: Level B - Scattered fibroglandular densities. FINDINGS: There is no new suspicious mass, microcalcification or region of architectural distortion. There are stable areas of benign asymmetry within the left breast described on prior studies. IMPRESSION: BI-RADS Category 2: Benign finding(s). RECOMMENDATION: Annual mammography is recommended. If your mammogram demonstrates that you have dense breast tissue, which could hide abnormalities, and if you have other risk factors for breast cancer that have been identified, you might benefit from s upplemental screening tests that may be suggested by your ordering physician. Dense breast tissue, i n and of itself, is a relatively common condition. This information is not provided to cause undue c oncern, but rather to raise your awareness and to promote discussion with your physician regarding th e presence of other risk factors, in addition to dense breast tissue. A report of your mammography re sults will be sent to you and your physician. You should contact your physician if you have any ques tions or concerns regarding this report. Mammography is a sensitive method for finding small breast cancers, but it does not detect them all a nd is not a substitute for careful clinical examination. A negative mammogram does not negate a clin ically suspicious finding and should not result in delay in biopsying a clinically suspicious abnorma lity. PQRS compliance statement - Patient information was entered into a reminder system with a target due date for the next mammogram. "Our facility is accredited by the [employer] Mammography Program." Electronically signed by: Radha Mcbride MD (11/18/2020 10:24 AM) [id number]
== END ==
LOC: MAMMO 09:20
PROVIDERS: ATTEND Family Medicine
DX: Z12.31 Encounter for screening mammogram for malignant neoplasm of breast (principal)
CPT/HCPCS: 77063; 77067